=== PATIENT | male | born 1930 | race Caucasian/White ===

== ENCOUNTER 2016-12-07 16:22 | Inpatient (IN) | payer BC, OTHER ==
[~2016-12-07] VITALS: Ht 170.2 cm; Wt 82.8 kg
[~2016-12-07 16:22] MED LIST: ASPI-435 PO; CHOL100010 PO; FRS/40 PO; GABA-112 PO; LISI-729 PO; METO25TA3 PO; MULT-506 PO; PRAV20TA PO; TRAM-10 PO
--- NOTE | 2016-12-07 16:51 | EMERGENCY ROOM VISIT NOTE ---
History First contact with patient: 16:29 Chief Complaint: TACHYCARDIA Stated Complaint: FAST HEART RATE- PHYSICIAN REFERRED Nursing Triage Summary: pt sent by , was there today for routine appt and was found to have a rapid heart rate. denies any chest pain or sob. unsure of when it began denies cardiac hx History of Present Illness The patient is a 86 year old male who presents to the Emergency Room via private vehicle with complaints of referred from skip pitman's office for tachycardia. The patient states that he was at Dr. Mcghee's office, for a routine 6 month checkup. As the patient does have a history of 2 stents in his heart. It was found that during his checkup his heart rate was 135 bpm, therefore he was sent here for further evaluation and management. Patient this time denies any shortness of breath, chest pain, fevers, chills, lightheadedness , dizziness, history of blood clots. He does note bilateral pedal edema which he takes Lasix for. Review of Systems A complete 10-point Review of Systems was discussed with the patient, with pertinent positives and negatives listed in the History of Present Illness. All remaining Review of Systems questions can be considered negative unless otherwise specified. Past Medical/Surgical History Medical Problems: (1) Atrial tachycardia determined by electrocardiography Family History High blood pressure Social History Smoking Status: Never Smoker Social History: Patient lives with Current/Historical Medications Scheduled Aspirin (Aspirin 81), 81 MG PO QAM Bumetanide (Bumetanide), 2 MG PO Q2D Bumetanide (Bumex), 3 MG PO Q2D Cholecalciferol (Vitamin D3), 1 TAB PO DAILY Gabapentin (Neurontin), 200 MG PO BID Lisinopril (Zestril), 5 MG PO QPM Metoprolol Succ (Toprol Xl) (Toprol-Xl), 25 MG PO QAM Multivitamin (Multivitamin), 1 TAB PO QAM Potassium Chloride (Potassium Chloride ER), 20 MEQ PO DAILY Pravastatin (Pravachol ), 20 MG PO HS Scheduled PRN Tramadol (Ultram), 50 MG PO Q4H PRN for Pain Allergies Coded Allergies: Penicillins (Verified Allergy, Mild, RASH, 04/24/15) Physical Exam Vital Signs Date Time Temp Pulse Resp B/P (MAP) Pulse Ox O2 Delivery O2 Flow Rate FiO2 12/07/16 18:26 131 18 95/72 95 Nasal Cannula 4.0 12/07/16 18:13 114 20 91/67 95 Nasal Cannula 4.0 12/07/16 17:41 88 Room Air 12/07/16 17:41 123 22 106/76 94 Nasal Cannula 2.0 12/07/16 17:38 133 22 107/83 91 Room Air 12/07/16 17:07 95 Room Air 12/07/16 17:07 134 16 113/83 94 Room Air 12/07/16 16:59 134 12/07/16 16:25 36.3 107 16 118/81 93 Room Air Physical Exam VITAL SIGNS - Vital signs and nursing notes were reviewed. Patient is afebrile , normotensive, non-tachycardic and is saturating on room air 93% GENERAL -86-year-old male appearing his stated age who is in no acute distress. Communicates well with provider and answers questions appropriately. SKIN - Without rashes. No petechial rashes. HEAD - NC/AT. LUNGS - Chest wall symmetric without accessory muscle use, intercostals retractions, or central cyanosis. Normal vesicular breath sounds CTA B/L. No wheezes, rales, or rhonchi appreciated. CARDIAC - RRR with S1/S2. No murmur, rubs, or gallops appreciated. EXTREMITIES - No clubbing or peripheral cyanosis. Trace pedal edema noted bilaterally. No pretibial edema present. +5/5 strength noted in UE/LE bilaterally. NEUROLOGIC - Cranial nerves II through XII grossly intact. Sensory intact to light touch throughout. PSYCH -Pt is very pleasant and interacts well with examiner. Medical Decision & Procedures ER Provider Diagnostic Interpretation: CHEST ONE VIEW PORTABLE CLINICAL HISTORY: Tachycardia COMPARISON STUDY: 07/09/2014 FINDINGS: The heart is enlarged. There is mild central pulmonary vascular congestion. There is a trace right pleural effusion. There are linear bibasilar opacities likely atelectatic.[ IMPRESSION: Cardiomegaly and mild pulmonary vascular congestion. Trace right pleural effusion. Bibasilar opacities likely atelectatic Electronically signed by: Ramy Sevilla M.D. 12/07/2016 5:35 PM Dictated Date/Time: 12/07/2016 5:34 PM Laboratory Results 12/07/16 16:52 Red Blood Count 4.30, Mean Corpuscular Volume 96.0, Mean Corpuscular Hemoglobin 33.0, Mean Corpuscular Hemoglobin Concent 34.4, Mean Platelet Volume 10.1, Neutrophils (%) (Auto) 62.0, Lymphocytes (%) (Auto) 25.6, Monocytes (%) (Auto) 10.3, Eosinophils (%) (Auto) 1.5, Basophils (%) (Auto) 0.5, Neutrophils # (Auto ) 4.80, Lymphocytes # (Auto) 1.99, Monocytes # (Auto) 0.80, Eosinophils # (Auto ) 0.12, Basophils # (Auto) 0.04 12/07/16 16:52 Test 12/07/16 16:32 12/07/16 16:52 12/07/16 17:01 12/07/16 17:07 Urine Color YELLOW Urine Appearance CLEAR (CLEAR) Urine pH 5.0 (4.5-7.5) Urine Specific [place] 1.019 (1.000-1.030) Urine Protein NEG (NEG) Urine Glucose (UA) NEG (NEG) Urine Ketones NEG (NEG) Urine Occult Blood NEG (NEG) Urine Nitrite NEG (NEG) Urine Bilirubin NEG (NEG) Urine Urobilinogen NEG (NEG) Urine Leukocyte Esterase NEG (NEG) White Blood Count 7.76 K/uL (4.8-10.8) Red Blood Count 4.30 M/uL (4.7-6.1) Hemoglobin 14.2 g/dL (14.0-18.0) Hematocrit 41.3 % (42-52) Mean Corpuscular Volume 96.0 fL (80-100) Mean Corpuscular Hemoglobin 33.0 pg (25-34) Mean Corpuscular Hemoglobin Concent 34.4 g/dl (32-36) Platelet Count 158 K/uL (130-400) Mean Platelet Volume 10.1 fL (7.4-10.4) Neutrophils (%) (Auto) 62.0 % Lymphocytes (%) (Auto) 25.6 % Monocytes (%) (Auto) 10.3 % Eosinophils (%) (Auto) 1.5 % Basophils (%) (Auto) 0.5 % Neutrophils # (Auto) 4.80 K/uL (1.4-6.5) Lymphocytes # (Auto) 1.99 K/uL (1.2-3.4) Monocytes # (Auto) 0.80 K/uL (0.11-0.59) Eosinophils # (Auto) 0.12 K/uL (0-0.5) Basophils # (Auto) 0.04 K/uL (0-0.2) RDW Standard Deviation 47.0 fL (36.4-46.3) RDW Coefficient of Variation 13.4 % (11.5-14.5) Immature Granulocyte % (Auto) 0.1 % Immature Granulocyte # (Auto) 0.01 K/uL (0.00-0.02) Anion Gap 9.0 mmol/L (3-11) Est Creatinine Clear Calc Drug Dose 56.7 ml/min Estimated GFR () 79.7 Estimated GFR (Non- 68.8 BUN/Creatinine Ratio 23.2 (10-20) Calcium Level 9.0 mg/dl (8.5-10.1) Magnesium Level 2.2 mg/dl (1.8-2.4) Total Bilirubin 0.6 mg/dl (0.2-1) Aspartate Amino Transf (AST/SGOT) 60 U/L (15-37) Alanine Aminotransferase (ALT/SGPT) 51 U/L (12-78) Alkaline Phosphatase 96 U/L (45-117) Total Protein 8.3 gm/dl (6.4-8.2) Albumin 3.6 gm/dl (3.4-5.0) Globulin 4.7 gm/dl (2.5-4.0) Albumin/Globulin Ratio 0.8 (0.9-2) Thyroid Stimulating Hormone (TSH) 4.270 uIu/ml (0.300-4.500) Bedside Troponin I 0.030 ng/ml (0-0.045) TF-Kvq-L-Type Natriuretic Peptide 1625 pg/ml (0-1800) Bedside Lactic Acid Venous 1.66 mmol/L (0.90-1.70) Test 12/07/16 17:28 Prothrombin Time 12.5 SECONDS (9.0-12.0) Prothromb Time International Ratio 1.2 (0.9-1.1) Activated Partial Thromboplast Time 28.5 SECONDS (21.0-31.0) Partial Thromboplastin Ratio 1.1 Medications Administered Medications (Trade) Dose Ordered Sig/Anni Route Start Time Stop Time Status Last Admin Dose Admin Diltiazem HCl (Cardizem Bolus / Drip) 1 ea NOW STAT IV 12/07/16 17:15 12/07/16 17:18 DC 12/07/16 17:37 1 EA Sodium Chloride 500 ml @ 999 mls/hr Q31M STAT IV 12/07/16 17:15 12/07/16 17:45 DC 12/07/16 17:32 999 MLS/HR Diltiazem HCl (Cardizem Inj) 10 mg TODAY@1730 IV 12/07/16 17:30 12/07/16 17:31 DC 12/07/16 17:33 10 MG Diltiazem HCl 125 mg/Dextrose 125 ml @ 0 mls/hr Q0M PRN IV 12/07/16 17:30 12/07/16 23:59 DC 12/07/16 17:37 5 MLS/HR Medical Decision Patient was seen and evaluated as above. After obtaining a thorough history and physical examination IV access was initiated and the above workup was performed. Bedside EKG was obtained and reveals what appears to be a wide tachycardia at a rate of 135 bpm. No ischemic change noted. I suspect the patient is likely experiencing atrial tachycardia 2: 1. This was also suspected by his skip pitman referred him here. I do not suspect V. tach at this time. Patient denies any other concerns. A Cardizem drip was initiated 10 mg bolus, followed by 5 mg drip. He is reevaluated and his rate had dropped to the low 120s. Chest x-ray does reveal cardiomegaly, pulmonary vascular congestion, and a small pleural effusion. His lung sounds are normal. CBC reveals no concern of leukocytosis. Hemoglobin 14.2. INR 1.2. BUN high 23, creatinine is 1. AST high at 60. Total protein high at 8.3. Globulin high at 4.7. Albumin/globulin ratio low at 0.08. Point care troponin and BNP unremarkable. Point care lactic unremarkable. I do not suspect sepsis. At this time I believe that admission is warranted. Case was discussed with my attending and he was also involved throughout the patient's stay. Case was discussed with Dr. Almazan. I also did call the skip pitman who took care of the patient at 6:05 PM (Dr. Hanks) The right bundle yanelis block was noted below. He was okay with the diltiazem drip. He recommends we have cardiology consult, and Dr. Parkinson can see him tomorrow. He also recommended slowing the rate down to 90s and also notes the echocardiogram was normal in 2015. The patient is stable for admission. Please refer to further documentation regarding the patient's stay. In evaluation treatment this patient following differential diagnoses entertained: Atrial tachycardia, V. tach, [place], PE, among others. Impression Primary Impression: Atrial tachycardia determined by electrocardiography Departure Information Dispostion Admitted as an inpatient Condition FAIR Referrals Ishaan Perry M.D. (PCP) Patient Instructions [facility]
[2016-12-07 17:08] LABS: BASO % 0.5 %; BASO ABS # 0.04 K/uL (0-0.2); COMPLETE YES; EOS % 1.5 %; HEMATOCRIT 41.3 % (42-52); IG% 0.1 %; LYMPH % 25.6 %; LYMPH ABS # 1.99 K/uL (1.2-3.4); MEAN CORPUSCULAR HGB CONC 34.4 g/dl (32-36); MEAN PLATELET VOLUME 10.1 fL (7.4-10.4); MONO % 10.3 %; PLATELET COUNT 158 K/uL (130-400); WHITE BLOOD COUNT 7.76 K/uL (4.8-10.8)
[2016-12-07] MEDS ORDERED: SODIUM CHLORIDE 0.9% 500ML 500 ML IV STA (17:15)
[2016-12-07] MEDS ORDERED: DILTIAZEM BOLUS / DRIP IV STA ×2 (17:15→19:16)
[2016-12-07] MEDS ORDERED: POTA-65 PO (17:15)
[2016-12-07] MEDS ORDERED: BUME1TAB PO (17:15)
[2016-12-07] MEDS ORDERED: BMX1 PO (17:15)
[2016-12-07] MEDS ORDERED: CHOL1000 PO (17:15)
[2016-12-07 17:20] LABS: POINT OF CARE TROPONIN I 0.03 ng/ml (0-0.045)
[2016-12-07 17:25] LABS: BUN/CREATININE RATIO 23.2 (10-20); MAGNESIUM 2.2 mg/dl (1.8-2.4); POTASSIUM 4.1 mmol/L (3.5-5.1)
[2016-12-07] MEDS ORDERED: DILTIAZEM HCL INJ 125 MG in DEXTROSE 5% 100ML IV PRN (17:30)
[2016-12-07] MEDS ORDERED: DILTIAZEM HCL 5 MG/ML 5 ML VIAL IV SCH (17:30)
[2016-12-07 17:35] LABS: URINE APPEARANCE CLEAR (CLEAR); URINE BILIRUBIN NEG (NEG); URINE COLOR YELLOW; URINE NITRITE NEG (NEG); URINE SPECIFIC GRAVITY 1.019 (1.000-1.030); UROBILINOGEN NEG (NEG); ZZUR CULT IF INDIC CLEAN CATCH NO
[2016-12-07 17:36] LABS: ALB/GLOB RATIO 0.8 (0.9-2); THYROID STIMULATING HORMONE 4.27 uIu/ml (0.300-4.500)
[2016-12-07 17:36] LABS: MANUAL MICROSCOPIC REQUIRED? NO; REVIEW REQ? NO
--- NOTE | 2016-12-07 17:36 | DIAGNOSTIC IMAGING REPORT ---
CHEST ONE VIEW PORTABLE CLINICAL HISTORY: Tachycardia COMPARISON STUDY: 07/09/2014 FINDINGS: The heart is enlarged. There is mild central pulmonary vascular congestion. There is a trace right pleural effusion. There are linear bibasilar opacities likely atelectatic.[ IMPRESSION: Cardiomegaly and mild pulmonary vascular congestion. Trace right pleural effusion. Bibasilar opacities likely atelectatic Electronically signed by: Ramy Sevilla M.D. 12/07/2016 5:35 PM Dictated Date/Time: 12/07/2016 5:34 PM
[2016-12-07 17:42] LABS: INR 1.2 (0.9-1.1); PARTIAL THROMBOPLASTIN RATIO 1.1; PROTHROMBIN TIME (PATIENT) 12.5 SECONDS (9.0-12.0)
[2016-12-07] MEDS ORDERED: POLYETHYLENE (MIRALAX) 17 GM PACK PO PRN (18:30)
[2016-12-07] MEDS ORDERED: MAGNESIUM HYDROXIDE SUSP 30 ML UDC PO PRN (18:30)
[2016-12-07] MEDS ORDERED: ONDANSETRON INJ 2 MG/ML 2 ML VIAL IV PRN (18:30)
[2016-12-07] MEDS ORDERED: ALUMINUM/MAGNESIUM/SIMETH (MAALOX MAX) 30 ML UDC PO PRN (18:30)
[2016-12-07] MEDS ORDERED: ACETAMINOPHEN 325 MG TAB PO PRN (18:30)
--- NOTE | 2016-12-07 19:18 | History and Physical ---
History & Physical Date & Time of Service: Dec 07, 2016 at 18:54 Chief Complaint: Fast Heart Rate- Physician Referred Primary Care Physician: Ishaan Perry M.D. History of Present Illness Source: patient Patient is an 86 year old male that presents with tachycardia after being sent from his cardiologists office. The patient was being seen for a 6 month follow up by his Outbound Sales Representative Dr. Hanks and was found to have a heart rate in the 130s and was told to come to the emergency department. The patient has dementia and states all he remembers was being at the doctors office and being sent to the hospital. He denies any chest pain, palpitations, lightheadedness, shortness of breath, abdominal pain, fever, nausea, or vomiting. He has no acute complaints and says he feels fine. Social History Smoking Status: Never Smoker Multi-Drug Resistant Organisms History of MDRO: No Allergies Coded Allergies: Penicillins (Verified Allergy, Mild, RASH, 04/24/15) Home Medications Scheduled Aspirin (Aspirin 81), 81 MG PO QAM Bumetanide (Bumetanide), 2 MG PO Q2D Bumetanide (Bumex), 3 MG PO Q2D Cholecalciferol (Vitamin D3), 1 TAB PO DAILY Gabapentin (Neurontin), 200 MG PO BID Lisinopril (Zestril), 5 MG PO QPM Metoprolol Succ (Toprol Xl) (Toprol-Xl), 25 MG PO QAM Multivitamin (Multivitamin), 1 TAB PO QAM Potassium Chloride (Potassium Chloride ER), 20 MEQ PO DAILY Pravastatin (Pravachol ), 20 MG PO HS Scheduled PRN Tramadol (Ultram), 50 MG PO Q4H PRN for Pain Review of Systems See HPI for pertinent positives and negatives. A total of ten systems were reviewed and were otherwise negative. Constitutional: No fever, No chills Respiratory: No cough, No shortness of breath Cardiovascular: No chest pain, No palpitations Abdomen: No pain, No nausea, No vomiting, No diarrhea Physical Exam Vital Signs Date Time Temp Pulse Resp B/P (MAP) Pulse Ox O2 Delivery O2 Flow Rate FiO2 12/07/16 18:45 130 20 108/85 95 Nasal Cannula 4.0 12/07/16 18:26 131 18 95/72 95 Nasal Cannula 4.0 12/07/16 18:13 114 20 91/67 95 Nasal Cannula 4.0 12/07/16 17:41 88 Room Air 12/07/16 17:41 123 22 106/76 94 Nasal Cannula 2.0 12/07/16 17:38 133 22 107/83 91 Room Air 12/07/16 17:07 95 Room Air 12/07/16 17:07 134 16 113/83 94 Room Air 12/07/16 16:59 134 12/07/16 16:25 36.3 107 16 118/81 93 Room Air General Appearance: WD/WN, no apparent distress Head: normocephalic, atraumatic Neck: supple, no carotid bruits Respiratory/Chest: chest non-tender, lungs clear, normal breath sounds Cardiovascular: no JVD, no murmur, + irregularly irregular Abdomen/GI: normal bowel sounds, non tender, soft Back: normal inspection Extremities/Musculoskelatal: no calf tenderness, + pedal edema Neurologic/Psych: alert, normal mood/affect, oriented x 3 Diagnostics Laboratory Results Results Past 24 Hours Test 12/07/16 16:32 12/07/16 16:52 12/07/16 17:01 12/07/16 17:07 Range/Units Urine Color YELLOW Urine Appearance CLEAR CLEAR Urine pH 5.0 4.5-7.5 Urine Specific [place] 1.019 1.000-1.030 Urine Protein NEG NEG Urine Glucose (UA) NEG NEG Urine Ketones NEG NEG Urine Occult Blood NEG NEG Urine Nitrite NEG NEG Urine Bilirubin NEG NEG Urine Urobilinogen NEG NEG Urine Leukocyte Esterase NEG NEG White Blood Count 7.76 4.8-10.8 K/uL Red Blood Count 4.30 4.7-6.1 M/uL Hemoglobin 14.2 14.0-18.0 g/dL Hematocrit 41.3 42-52 % Mean Corpuscular Volume 96.0 80-100 fL Mean Corpuscular Hemoglobin 33.0 25-34 pg Mean Corpuscular Hemoglobin Concent 34.4 32-36 g/dl Platelet Count 158 130-400 K/uL Mean Platelet Volume 10.1 7.4-10.4 fL Neutrophils (%) (Auto) 62.0 % Lymphocytes (%) (Auto) 25.6 % Monocytes (%) (Auto) 10.3 % Eosinophils (%) (Auto) 1.5 % Basophils (%) (Auto) 0.5 % Neutrophils # (Auto) 4.80 1.4-6.5 K/uL Lymphocytes # (Auto) 1.99 1.2-3.4 K/uL Monocytes # (Auto) 0.80 0.11-0.59 K/uL Eosinophils # (Auto) 0.12 0-0.5 K/uL Basophils # (Auto) 0.04 0-0.2 K/uL RDW Standard Deviation 47.0 36.4-46.3 fL RDW Coefficient of Variation 13.4 11.5-14.5 % Immature Granulocyte % (Auto) 0.1 % Immature Granulocyte # (Auto) 0.01 0.00-0.02 K/uL Sodium Level 139 136-145 mmol/L Potassium Level 4.1 3.5-5.1 mmol/L Chloride Level 103 98-107 mmol/L Carbon Dioxide Level 27 21-32 mmol/L Anion Gap 9.0 3-11 mmol/L Blood Urea Nitrogen 23 7-18 mg/dl Creatinine 1.00 0.60-1.40 mg/dl Est Creatinine Clear Calc Drug Dose 56.7 ml/min Estimated GFR () 79.7 Estimated GFR (Non- 68.8 BUN/Creatinine Ratio 23.2 10-20 Random Glucose 113 70-99 mg/dl Calcium Level 9.0 8.5-10.1 mg/dl Magnesium Level 2.2 1.8-2.4 mg/dl Total Bilirubin 0.6 0.2-1 mg/dl Aspartate Amino Transf (AST/SGOT) 60 15-37 U/L Alanine Aminotransferase (ALT/SGPT) 51 12-78 U/L Alkaline Phosphatase 96 45-117 U/L Total Protein 8.3 6.4-8.2 gm/dl Albumin 3.6 3.4-5.0 gm/dl Globulin 4.7 2.5-4.0 gm/dl Albumin/Globulin Ratio 0.8 0.9-2 Thyroid Stimulating Hormone (TSH) 4.270 0.300-4.500 uIu/ml Bedside Troponin I 0.030 0-0.045 ng/ml GL-Syt-T-Type Natriuretic Peptide 1625 0-1800 pg/ml Bedside Lactic Acid Venous 1.66 0.90-1.70 mmol/L Test 12/07/16 17:28 Range/Units Prothrombin Time 12.5 9.0-12.0 SECONDS Prothromb Time International Ratio 1.2 0.9-1.1 Activated Partial Thromboplast Time 28.5 21.0-31.0 SECONDS Partial Thromboplastin Ratio 1.1 Impression Assessment and Plan Patient is an 86 year old male that presented to the ED with tachycardia 1) Atrial Tachycardia - EKG as read by Dr. Hanks appears to be Atrial Tachycardia with 2:1 conduction - Diltiazem bolus of 10ml - Diltiazem drip at 5ml/hr - Discussed patient with Dr. Hanks who provided above recommendations to get rate under control - Consult to Dr. Garcia and Cardiology to see the patient tomorrow - No anticoagulation due to history of Cirrhosis and Varices - Hold home Toprol Xl until seen by cardiology tomorrow morning 2) Hypertension - Hold home Lisinopril and Toprol until heart rate stabilizes and hypotension resolves - Hold home Lasix 3) Hyperlipidemia - Hold home Pravastatin 4) Home Medications - Hold Gabapentin and remaining home medications overnight 5) DVT - SCD Resident Physician Supervision Note: I was present with Dr. Dumont during the history and exam. I discussed the case with the resident and agree with the findings and plan as documented in the note. 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 Y/N: Yes Risk Level: Moderate Given or contraindicated: SCD's
[2016-12-07 19:45] VITALS: BP 121/83; PULSE 133; TEMP 36.8; O2SAT 91
[2016-12-07 20:00] VITALS: BP 121/83; PULSE 133; TEMP 36.8; O2SAT 91; Ht 170.2 cm; Wt 82.8 kg
[2016-12-07] MEDS: DILTIAZEM HCL INJ 125 MG in DEXTROSE 5% 100ML IV PRN (20:05)
[2016-12-07 20:15] VITALS: BP 132/88; PULSE 133
[2016-12-07 20:45] VITALS: BP 116/44; PULSE 99
--- NOTE | 2016-12-07 23:14 | EMERGENCY ROOM VISIT NOTE ---
ED Visit Note First contact with patient: 16:29 Patient was seen by our PA/TIRE DUSTER. I was involved in the patient's care and did evaluate the patient myself. I was involved in the care throughout the ER stay. The patient appears to be in a new onset rapid atrial flutter. Laboratory workup is unrevealing. The patient is doing well but is persistently tachycardic. He was given an IV diltiazem bolus and placed on an IV diltiazem drip, admission/observation is warranted.
[2016-12-07 23:33] VITALS: BP 138/68; PULSE 98; TEMP 36.7; O2SAT 94
[2016-12-08] VITALS (14 sets, daily range): BP systolic 85–130; BP diastolic 49–80; PULSE 55–130; TEMP 36.5–36.7; O2SAT 90–94
[2016-12-08] MEDS: DILTIAZEM HCL INJ 125 MG in DEXTROSE 5% 100ML IV PRN (05:35)
--- NOTE | 2016-12-08 08:51 | Clinical Documentation Query ---
OTIS Cook : CLINICAL DOCUMENTATION QUERY Patient is an 86 year old male admitted for evaluation and treatment of an "atrial tachycardia". Anticoagulation was deferred in the setting of an atrial tachycardia as patient was noted by admitting physician to have a history of varices. Noted to have liver cirrhosis. As appropriate, consider clarification as suggested below as this directly impacts DRG assignment. Thank you. In your clinical opinion is this patient being managed for/have a history of: ( ) Esophageal varices ( ) Other explanation of clinical findings (Please Explain) ( ) Unable to determine (Please Define) ( ) Need to Discuss ( ) Not Agree The medical record reflects the following clinical findings, treatment, and risk factors. Clinical Indicators: As above Treatment: Avoidance of anticoagulation in the setting of atrial tachycardia Risk Factors: Liver cirrhosis Please clarify and document your clinical opinion in the progress notes and discharge summary. Terms such as "probable", "suspected", "likely", "questionable", "possible", or "still to be ruled out" are acceptable. IF IN AGREEMENT, YOU MUST DOCUMENT ABOVE DIAGNOSTIC STATEMENT IN DAILY PROGRESS NOTES AND DISCHARGE SUMMARY. This document is not part of the patient's record. Thank You, Giles Amato, RN [phone]
[2016-12-08] MEDS ORDERED: PROPOFOL IV EMULSION 10 MG/ML 20 ML VIAL IV ONE (09:46)
[2016-12-08] MEDS ORDERED: ENOXAPARIN 80 MG/0.8 ML SYR SQ ONE (10:00)
[2016-12-08] MEDS ORDERED: LIDOCAINE HCL 2% VISC SOLN 20 ML UDC ONE (10:07)
[2016-12-08] MEDS ORDERED: NURSING VERBAL MED ORDER ONE (10:15)
[2016-12-08] MEDS ORDERED: PHENYLEPHRINE 100MCG/ML 5ML SYR ONE (10:36)
[2016-12-08] MEDS ORDERED: EpHEDrine SULFATE 50MG/5ML SYR ONE (10:36)
[2016-12-08] MEDS ORDERED: XRL15 PO (11:34)
[2016-12-08] MEDS ORDERED: XRL10 PO (11:34)
--- NOTE | 2016-12-08 11:39 | Anesthesiology Progress Note ---
Anesthesia Post Op Note Date & Time Dec 08, 2016 at 11:39 Vital Signs Pain Intensity: 0 Vital Signs Past 12 Hours Date Time Temp Pulse Resp B/P (MAP) Pulse Ox O2 Delivery O2 Flow Rate FiO2 12/08/16 11:19 36.7 75 18 99/69 (79) 92 Nasal Cannula 2.0 12/08/16 10:48 79 18 91/48 (62) 92 Nasal Cannula 4 12/08/16 10:38 77 18 99/58 (72) 93 Mask 6 12/08/16 10:28 82 16 91/52 (65) 93 Mask 6 12/08/16 10:25 76 18 94/49 92 Mask 6 12/08/16 10:20 118 18 85/54 92 Nasal Cannula 6 12/08/16 10:15 118 18 94/55 92 Nasal Cannula 6 12/08/16 10:10 129 18 113/80 94 Nasal Cannula 4 12/08/16 10:05 129 18 122/72 94 Nasal Cannula 4 12/08/16 10:00 130 18 118/71 94 Nasal Cannula 4 12/08/16 09:34 36.6 94 22 107/62 91 Room Air 12/08/16 08:10 91 Room Air 12/08/16 07:30 36.6 55 22 107/62 (77) 90 Nasal Cannula 2.0 12/08/16 04:05 94 Nasal Cannula 2.0 12/08/16 03:16 36.5 105 130/70 (90) 92 Nasal Cannula 2.0 12/08/16 00:05 Nasal Cannula 2.0 Notes Mental Status: alert / awake / arousable, participated in evaluation Pt Amnestic to Procedure: Yes Nausea / Vomiting: adequately controlled Pain: adequately controlled Airway Patency, RR, SpO2: stable & adequate BP & HR: stable & adequate Hydration State: stable & adequate Anesthetic Complications: no major complications apparent
--- NOTE | 2016-12-08 13:26 | Medical Student: [facility] ---
Med Student Progress Note Date of Service Dec 08, 2016. Subjective This is an 86 year old male with dementia who has been admitted for irregular atrial tachycardia, likely atrial flutter. He was cardioverted this am and has been stable in NSR since. Patient is a poor historian, but states he feels well overall and would like to eat. He has no complaints. Review of Systems Constitutional: No fever, No chills ENT: No sore throat Respiratory: No cough, No sputum, No wheezing, No shortness of breath Cardiac: No chest pain, No edema Abdomen: No pain, No nausea, No vomiting, No diarrhea, No constipation Male : No dysuria Heme: No abnormal bleeding/bruising Objective Vital Signs Date Time Temp Pulse Resp B/P (MAP) Pulse Ox O2 Delivery O2 Flow Rate FiO2 12/08/16 12:05 93 Nasal Cannula 1.0 12/08/16 11:19 36.7 75 18 99/69 (79) 92 Nasal Cannula 2.0 12/08/16 10:48 79 18 91/48 (62) 92 Nasal Cannula 4 12/08/16 10:38 77 18 99/58 (72) 93 Mask 6 12/08/16 10:28 82 16 91/52 (65) 93 Mask 6 12/08/16 10:25 76 18 94/49 92 Mask 6 12/08/16 10:20 118 18 85/54 92 Nasal Cannula 6 12/08/16 10:15 118 18 94/55 92 Nasal Cannula 6 12/08/16 10:10 129 18 113/80 94 Nasal Cannula 4 12/08/16 10:05 129 18 122/72 94 Nasal Cannula 4 12/08/16 10:00 130 18 118/71 94 Nasal Cannula 4 12/08/16 09:34 36.6 94 22 107/62 91 Room Air 12/08/16 08:10 91 Room Air 12/08/16 07:30 36.6 55 22 107/62 (77) 90 Nasal Cannula 2.0 12/08/16 04:05 94 Nasal Cannula 2.0 12/08/16 03:16 36.5 105 130/70 (90) 92 Nasal Cannula 2.0 12/08/16 00:05 Nasal Cannula 2.0 12/07/16 23:33 36.7 98 26 138/68 (91) 94 Nasal Cannula 2.0 12/07/16 20:45 99 16 116/44 (68) 12/07/16 20:15 133 18 132/88 (103) 12/07/16 20:00 36.8 133 20 121/83 91 Room Air 12/07/16 19:45 36.8 133 20 121/83 (96) 91 Room Air 12/07/16 19:03 131 20 131/81 97 Nasal Cannula 4.0 12/07/16 18:45 130 20 108/85 95 Nasal Cannula 4.0 12/07/16 18:26 131 18 95/72 95 Nasal Cannula 4.0 12/07/16 18:13 114 20 91/67 95 Nasal Cannula 4.0 12/07/16 17:41 88 Room Air 12/07/16 17:41 123 22 106/76 94 Nasal Cannula 2.0 12/07/16 17:38 133 22 107/83 91 Room Air 12/07/16 17:07 95 Room Air 12/07/16 17:07 134 16 113/83 94 Room Air 12/07/16 16:59 134 12/07/16 16:25 36.3 107 16 118/81 93 Room Air Physical Exam General Appearance: WD/WN, no apparent distress Neck: supple, no adenopathy, thyroid normal, no JVD Respiratory/Chest: chest non-tender, lungs clear, normal breath sounds, no respiratory distress, no accessory muscle use Cardiovascular: regular rate, rhythm, no edema, no gallop, no JVD Abdomen: normal bowel sounds, non tender, soft, no organomegaly Neurologic/Psychiatric: alert, normal mood/affect Skin: normal color, warm/dry, no rash Lymphatic: no adenopathy Laboratory Results Last 24 Hours Test 12/07/16 16:32 12/07/16 16:52 12/07/16 17:01 12/07/16 17:07 Urine Color YELLOW Urine Appearance CLEAR Urine pH 5.0 Urine Specific [place] 1.019 Urine Protein NEG Urine Glucose (UA) NEG Urine Ketones NEG Urine Occult Blood NEG Urine Nitrite NEG Urine Bilirubin NEG Urine Urobilinogen NEG Urine Leukocyte Esterase NEG White Blood Count 7.76 K/uL Red Blood Count 4.30 M/uL Hemoglobin 14.2 g/dL Hematocrit 41.3 % Mean Corpuscular Volume 96.0 fL Mean Corpuscular Hemoglobin 33.0 pg Mean Corpuscular Hemoglobin Concent 34.4 g/dl Platelet Count 158 K/uL Mean Platelet Volume 10.1 fL Neutrophils (%) (Auto) 62.0 % Lymphocytes (%) (Auto) 25.6 % Monocytes (%) (Auto) 10.3 % Eosinophils (%) (Auto) 1.5 % Basophils (%) (Auto) 0.5 % Neutrophils # (Auto) 4.80 K/uL Lymphocytes # (Auto) 1.99 K/uL Monocytes # (Auto) 0.80 K/uL Eosinophils # (Auto) 0.12 K/uL Basophils # (Auto) 0.04 K/uL RDW Standard Deviation 47.0 fL RDW Coefficient of Variation 13.4 % Immature Granulocyte % (Auto) 0.1 % Immature Granulocyte # (Auto) 0.01 K/uL Sodium Level 139 mmol/L Potassium Level 4.1 mmol/L Chloride Level 103 mmol/L Carbon Dioxide Level 27 mmol/L Anion Gap 9.0 mmol/L Blood Urea Nitrogen 23 mg/dl Creatinine 1.00 mg/dl Est Creatinine Clear Calc Drug Dose 56.7 ml/min Estimated GFR () 79.7 Estimated GFR (Non- 68.8 BUN/Creatinine Ratio 23.2 Random Glucose 113 mg/dl Calcium Level 9.0 mg/dl Magnesium Level 2.2 mg/dl Total Bilirubin 0.6 mg/dl Aspartate Amino Transf (AST/SGOT) 60 U/L Alanine Aminotransferase (ALT/SGPT) 51 U/L Alkaline Phosphatase 96 U/L Total Protein 8.3 gm/dl Albumin 3.6 gm/dl Globulin 4.7 gm/dl Albumin/Globulin Ratio 0.8 Thyroid Stimulating Hormone (TSH) 4.270 uIu/ml Bedside Troponin I 0.030 ng/ml [id number] Natriuretic Peptide 1625 pg/ml Bedside Lactic Acid Venous 1.66 mmol/L Test 12/07/16 17:28 Prothrombin Time 12.5 SECONDS Prothromb Time International Ratio 1.2 Activated Partial Thromboplast Time 28.5 SECONDS Partial Thromboplastin Ratio 1.1 Medications Medications Administered Medications (Trade) Dose Ordered Sig/Anni Route Start Time Stop Time Status Last Admin Dose Admin Diltiazem HCl (Cardizem Bolus / Drip) 1 ea NOW STAT IV 12/07/16 17:15 12/08/16 09:35 DC 12/07/16 17:37 1 EA Sodium Chloride 500 ml @ 999 mls/hr Q31M STAT IV 12/07/16 17:15 12/07/16 17:45 DC 12/07/16 17:32 999 MLS/HR Diltiazem HCl (Cardizem Inj) 10 mg TODAY@1730 IV 12/07/16 17:30 12/07/16 17:31 DC 12/07/16 17:33 10 MG Diltiazem HCl 125 mg/Dextrose 125 ml @ 0 mls/hr Q0M PRN IV 12/07/16 17:30 12/07/16 23:59 DC 12/07/16 17:37 5 MLS/HR Ondansetron HCl (Zofran Inj) 4 mg Q6H PRN IV 12/07/16 18:30 01/06/17 18:29 12/08/16 06:05 4 MG Diltiazem HCl 125 mg/Dextrose 125 ml @ 0 mls/hr Q0M PRN IV 12/08/16 00:00 12/08/16 10:10 DC 12/08/16 05:35 10 MLS/HR Lidocaine HCl (Viscous Lidocaine 2% Soln) 20 ml STK-MED ONCE .ROUTE 12/08/16 10:07 12/08/16 10:08 DC 12/08/16 10:07 20 ML Assessment and Plan Assessment and Plan: This is an 86 y/o male s/p cardioversion for atrial flutter. He is recovering well. 1. Atrial arrhythmia -s/p synchronized cardioversion and TAJ which did not demonstrate thrombus in left atrial appendage -continue observation, if stable may consider discharge home -Has received dose of lovenox with procedure, consider discharge on xarelto -May follow up outpatient with cardiology 2. HTN -hold lisinopril, toprol, lasix 3. Hypercholesterolemia -hold statin Continued [facility] stay due to: other Discharge planning: home
--- NOTE | 2016-12-08 14:15 | Discharge Instructions ---
Discharge Instructions Date of Service Dec 08, 2016. Admission Reason for Admission: Atrial Tachycardia Determined By Discharge Discharge Diagnosis / Problem: atrial tachycardial Discharge Goals Goal(s): Diagnostic testing, Therapeutic intervention Activity Recommendations Activity Limitations: resume your previous activity . Current Hospital Diet Patient's current hospital diet: Regular Diet Discharge Diet Recommended Diet: Regular Diet Pending Studies Studies pending at discharge: no Medical Emergencies . Who to Call and When: Medical Emergencies: If at any time you feel your situation is an emergency, please call 911 immediately. . Non-Emergent Contact Non-Emergency issues call your: Building Construction Foreman Call Non-Emergent contact if: temperature is above 101, your pain is unusual for you . . "Provider Documentation" section prepared by Anders Watson. . VTE Core Measure Inpt VTE Proph given/why not?: SCD's
--- NOTE | 2016-12-08 14:19 | Discharge Summary ---
Discharge Summary Date of Service Dec 08, 2016. Discharge Summary Admission Date: Dec 07, 2016 at 18:36 Discharge Date: Dec 08, 2016 Discharge Disposition: Home with services Principal Diagnosis: atrial tachycardia s/p cardioversion Consultations: Dr Garcia, cardioversion Medication Reconciliation New Medications: Rivaroxaban (Xarelto) 10 Mg Tab 2 TAB PO DAILY for 30 Days, #60 TAB 6 Refills to be started after 15 mg bid load for 21 days may substitute 20 mg tablet if able Rivaroxaban (Xarelto) 15 Mg Tab 15 MG PO BID for 21 Days, #42 DOSE xarelto 15 mg bid for 21 days then 20 mg a day Continued Medications: Aspirin (Aspirin 81) 81 Mg Tab 81 MG PO QAM Bumetanide (Bumetanide) 1 Mg Tab 2 MG PO Q2D, #72 Bumetanide (Bumex) 1 Mg Tab 3 MG PO Q2D, TAB Cholecalciferol (Vitamin D3) 1,000 Unit Tab 1 TAB PO DAILY for 90 Days, #90 TAB 3 Refills Gabapentin (Neurontin) 100 Mg Cap 200 MG PO BID, CAP Lisinopril (Zestril) 5 Mg Tab 5 MG PO QPM, TAB Metoprolol Succ (Toprol Xl) (Toprol-Xl) 25 Mg Tabcr 25 MG PO QAM, TAB Multivitamin (Multivitamin) Tab 1 TAB PO QAM, TAB Potassium Chloride (Potassium Chloride ER) 20 Meq Tab 20 MEQ PO DAILY, #30 Pravastatin (Pravachol ) 20 Mg Tab 20 MG PO HS, TAB Tramadol (Ultram) 50 Mg Tab 50 MG PO Q4H PRN for Pain, TAB Discharge Exam Review of Systems: Constitutional: + chills, No fever Cardiovascular: No chest pain, No orthopnea Abdomen: No pain, No nausea Physical Exam: General Appearance: WD/WN, no apparent distress Cardiovascular: regular rate, rhythm, + systolic murmur Hospital Course Patient is an 86 year old male that presented to the ED with atrial tachycardia Atrial Tachycardia- Diltiazem bolus/ drip initial reports of anticoagulation contraindicated due to history of Cirrhosis and Varices was erroneous, Dr Garcia feels pt should be anticoagulated and agrees with Xarelto recommentds follow up for possible ablation Hypertension- resume Lisinopril and Toprol plus diuretics Hyperlipidemia Pravastatin DVT- SCD Total Time Spent: Greater than 30 minutes This includes examination of the patient, discharge planning, medication reconciliation, and communication with other providers. Discharge Instructions Please refer to the electronic Patient Visit Report (Discharge Instructions) for additional information.
--- NOTE | 2016-12-08 14:22 | CARDIOLOGY CONSULTATION ---
DATE OF CONSULTATION: 12/08/2016 CHIEF COMPLAINT: Tachycardia. HISTORY OF PRESENT ILLNESS: Mr. Leandro Bonilla is an 86-year-old gentleman with a history significant for coronary artery disease, who presented for routine cardiology visit and was found to be tachycardic. An EKG obtained at that time suggested an atrial tachycardia with rapid ventricular response. The patient did not describe symptoms associated with the arrhythmia at that visit. On interview today, he states that he was unaware of a rapid heartbeat. He was not experiencing symptoms of worsening dyspnea or shortness of breath. He did not have symptoms of chest discomfort, lightheadedness or dizziness. He did not experience any syncopal episodes. The patient has blood pressure cuff at home but does not routinely use it. Generally he states that he is an active individual who is accustomed to walking and perform any activities around the house without limiting symptoms. He states that in the winter time he bowls and in the summer time he likes to play softball. It is unclear when he last engaged in these activities. He denies orthopnea or paroxysmal nocturnal dyspnea. He states that he does have some swelling on the upper portion of his feet bilaterally that is well controlled. He denied swelling of his abdomen. He has not had any recent abdominal complaints. He denies any difficulty with swallowing. PAST MEDICAL HISTORY: Significant for: 1. The aforementioned coronary artery disease, having undergone coronary artery bypass grafting in 1987. This was a STYLES to the LAD and a vein graft to the diagonal. 2. Percutaneous intervention involving the circumflex artery in 2005. 3. Diastolic dysfunction type 2 on echocardiogram 2014. 4. Dilated aortic root, last measured at 4.6 cm. 5. Hyperlipidemia. 6. Hypertension. 7. Aortic insufficiency, mild. 8. Dementia, characterized as moderate. 9. 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 No history of esophageal varices or abnormal liver function tests. PAST SURGICAL HISTORY: Includes the aforementioned coronary artery bypass grafting as well as cholecystectomy. OUTPATIENT MEDICATIONS: Include aspirin, bumetanide, gabapentin, lisinopril, metoprolol, potassium, pravastatin, and tramadol. MEDICAL ALLERGIES: INCLUDE PENICILLIN. SOCIAL HISTORY: The patient currently lives with his . He is a lifelong nonsmoker and denies significant alcohol use. FAMILY HISTORY: Noncontributory, given the patient's age. REVIEW OF SYSTEMS: A complete review of systems was performed and the pertinent positives are noted in the history of present illness, the remainder being negative. The patient denied any recent nausea or vomiting. He denies any hematochezia, hematemesis or dark stools recently. PHYSICAL EXAMINATION: GENERAL: He was alert. He was oriented. He answered all questions appropriately. He had some difficulty with memory at times but was pleasant. CURRENT VITAL SIGNS: Include blood pressure of 107/62 with pulse of 94. HEENT: His sclerae are anicteric. Pupils equal, reactive to light and accommodation. Extraocular movements were intact. NEUROLOGIC EXAMINATION: Revealed cranial nerves to be intact. NECK: Palpation of the submandibular region did not reveal any significant lymphadenopathy. The carotids are palpable bilaterally. I do not appreciate any bruits on auscultation. Thyroid was not enlarged. LUNGS: Auscultation of his lungs revealed clear airways without rales, wheezes or rhonchi. He had normal respiratory effort without use of accessory muscles. CARDIAC: Revealed him to be in an irregularly irregular rhythm with a systolic ejection murmur of variable intensity. He had a well-healed sternotomy scar. PMI was not markedly displaced on palpation. ABDOMEN: Soft and nontender. EXTREMITIES: Evaluation of both wrists revealed radial pulses that were equal in intensity. There was no evidence of cyanosis or clubbing. Evaluation of lower extremities revealed some peripheral edema involving the feet but this was mild. SKIN: I do not appreciate any rashes on examination today. LABORATORY STUDIES: Obtained include a white cell count of 7.7, hemoglobin of 14.2, platelet count of 158. Sodium is 139, potassium is 4.1, BUN was 23, creatinine was 1, INR was 1.2. Single view chest x-ray was obtained at the time of admission which revealed the patient to have an element of cardiomegaly and mild pulmonary vascular congestion. A 12-lead EKG was also obtained, which revealed an atrial flutter and rapid ventricular response. The patient also had a right bundle branch block. ASSESSMENT AND PLAN: 1. Atrial flutter with rapid ventricular response: I think the patient's EKG is most consistent with an organized atrial flutter, likely right atrial. He has no symptoms referable to the arrhythmia or the heart rate. The exact duration of the arrhythmia is also unknown, given the lack of symptoms associated with the atrial flutter. The patient presented yesterday simply for a routine evaluation. He has been on diltiazem infusion over the course of the evening but this did not affect a good rate control. He is also on metoprolol orally. I think we are unlikely to achieve a good rate control with an atrial flutter of this nature and cardioversion would likely be more efficacious. Given the unknown duration of his atrial flutter and the risk for stroke, a TAJ would need to be performed prior to cardioversion. A good long-term strategy would be for ablation of what is likely an isthmus dependent typical right atrial flutter. This would not only prevent recurrences but obviate the need for long-term anticoagulation in the absence of another arrhythmia. I did discuss the risks, benefits and alternatives to the patient and attempted to contact his . I think it is reasonable to anticoagulate him based on the absence of significant risk factors. We will give him Lovenox currently and plan on discharge on anticoagulation. He has no history of esophageal varices or bleeding. His synthetic liver function appears to be normal. I think the overall risk is low and we will attempt to limit the duration of anticoagulation after ablation. 2. Coronary artery disease: The patient has no symptoms currently of coronary insufficiency. Does not describe symptoms of chest discomfort. He will be continued on aggressive secondary prevention. 3. Valvular heart disease. The patient is reported to have an element of aortic insufficiency. This will be evaluated on his echocardiogram. 4. Dilated aortic root. Aortic root is approaching the size where most patients would be referred for intervention; however, given his other comorbidities, specifically his degree of dementia, this is not likely to be advised.
--- NOTE | 2016-12-08 14:24 | CARDIOVERSION ---
DATE OF OPERATION: 12/08/2016 DATE OF PROCEDURE: 12/08/2016. PROCEDURE PERFORMED: Cardioversion. STAFF LEG BREAKER: Dr. Reji Garcia. INDICATIONS: Mr. Leandro Bonilla is an 86-year-old gentleman who presented to [facility] with atrial flutter and rapid ventricular response. Based on inability to control his heart rate and difficulties with medical titration he was felt to be a good candidate for cardioversion. PROCEDURE IN DETAIL: The patient was informed of the risks, benefits and alternatives to the intended procedure. He understood such risks and wished to proceed. He was taken to the cardiac cauterization holding area where preprocedure TAJ was performed as the duration of the patient's atrial flutter was unknown. Once thrombus in the left atrial appendage was excluded the patient underwent induction of a general anesthetic by the anesthesiology service and once appropriately anesthetized he underwent cardioversion using 30 joules delivered in a biphasic fashion. This converted the patient to a sinus rhythm. The patient did have a prolonged period of unresponsiveness secondary to anesthetic after the procedure but eventually regained consciousness and was hemodynamically stable. There were no immediate complications and the patient appeared to be neurologically intact. IMPRESSION: Successful cardioversion from atrial flutter to sinus rhythm. I attest to the content of the Intraoperative Record and any orders documented therein. Any exception s are noted below.
--- NOTE | 2016-12-08 15:11 | TEE ---
*NOTICE TO RECEIVING REPUBLICAN AGENCY This information is strictly Confidential and protected under [place] law. [place] law prohibits you from making any further disclosure of this information unless further disclosure is expressly permitted by the written consent of the person to whom it pertains or is authorized by law. A general authorization for the release of medical or other information is not sufficient for this purpose. Hospital accepts no responsibility if the information is made available to any other person, INCLUDING THE PATIENT. Interpretation Summary * Name: REUBEN PALMER Study Date: 12/08/2016 10:02 AM BP: 122/79 mmHg * Patient Location: [id number].[id number]\E210\S\1 HR: 129 * : 1930 (M/d/yyyy) Gender: Male Height: 67 in * Age: 86 yrs Ethnicity: CA Weight: 182 lb * Ordering Physician: Reji Garcia * Referring Physician: Walker Hanks * Performed By: Catherine Thorne RCS * * Reason For Study: CARDIOVERSION / A-FIB * BSA: 1.9 m2 * -- Conclusions -- * There is mild concentric left ventricular hypertrophy. * The left ventricular ejection fraction is grossly normal. * The left atrium is moderately dilated. * The right atrium is moderate to severely dilated. * Severe valvular aortic stenosis. * There is mild to moderate mitral regurgitation. * There is severe mitral annular calcification. * The mitral valve leaflets appear thickened, but open well. Procedure Details * TAJ probe #3 was administered during procedure. TIME OUT: 1000 PROBE IN: 1010 PROBE OUT: 1018 CARDIOVERSION: 1019 * The study was performed in Cardiac Catheterization Lab. * Time out was conducted by the physician, nurse, and it help desk technician with positive identification of patient and procedure. * Informed consent for Transesophageal Echocardiogram was obtained prior to the procedure. * An intravenous line was placed. A topical anesthetic agent was used for oropharangeal anesthesia. A bite block was inserted. * Sedation performed by the anesthesia department. * The patient's vital signs, including blood pressure, heart rate, pulse oximetry and cardiac rhythm were monitored throughout the procedure . * A multifrequency, multiplane transesopheageal echocardiographic endoscope was inserted and manipulated in the standard fashion to achieve multiplane views. * The transesophageal probe was passed without difficulty. * The patient tolerated the procedure well without evidence of orophangeal or esophageal trauma. * A 2D transesophageal echocardiogram with spectral and color flow Doppler was performed. * A 2D transesophageal echocardiogram with Doppler and color flow Doppler was performed. Left Ventricle * There is mild concentric left ventricular hypertrophy. * The left ventricular ejection fraction is grossly normal. Atria * The left atrium is moderately dilated. * The right atrium is moderate to severely dilated. * The interatrial septum is intact with no evidence for an atrial septal defect. Mitral Valve * There is severe mitral annular calcification. * The mitral valve leaflets appear thickened, but open well. * There is mild to moderate mitral regurgitation. Tricuspid Valve * The tricuspid valve is not well visualized, but is grossly normal. Aortic Valve * Heavily calcified aortic valve * Severe valvular aortic stenosis. Pericardium * There is no pericardial effusion.
[2016-12-18] MEDS ORDERED: DILT120C50 PO (13:04)
[2016-12-18] MEDS ORDERED: CRD30 PO (13:04)
[2016-12-18] MEDS ORDERED: LNX125 PO (13:04)
== END 2016-12-08 15:50 | disposition home or self-care (01) | DRG 310 ==
LOC: C.EDB 16:23 → C.2E 18:36 → EDBEDREQ 18:42 → ENRESERV 18:58
PROVIDERS: ADMIT Student in an Organized Health Care Education/Training Program; ATTEND Internal Medicine
DX: I48.92 Unspecified atrial flutter (principal); I10 Essential (primary) hypertension; E78.5 Hyperlipidemia, unspecified; F03.90 Unspecified dementia, unspecified severity, without behavioral disturbance, psychotic disturbance, mood disturbance, and anxiety; K74.60 Unspecified cirrhosis of liver; I25.10 Atherosclerotic heart disease of native coronary artery without angina pectoris; I83.90 Asymptomatic varicose veins of unspecified lower extremity; Z79.82 Long term (current) use of aspirin

== ENCOUNTER 2016-12-14 14:59 | Inpatient (IN) | payer BC, OTHER ==
[2016-12-14] VITALS (8 sets, daily range): BP systolic 97–114; BP diastolic 57–79; PULSE 90–166; TEMP 36.4–36.6; O2SAT 93–97; Ht 180.3 cm; Wt 85.0 kg
[~2016-12-14] VITALS: Ht 180.3 cm; Wt 85.0 kg
[~2016-12-14 14:59] MED LIST changes: +BMX1 PO; +BUME1TAB PO; +CHOL1000 PO; -CHOL100010 PO; -FRS/40 PO; +POTA-65 PO; +XRL10 PO; +XRL15 PO
[2016-12-14] MEDS ORDERED: METOPROLOL TARTRATE 25 MG TAB PO STA (15:19)
[2016-12-14] MEDS ORDERED: SODIUM CHLORIDE 0.9% 1000ML 1,000 ML IV STA (15:19)
[2016-12-14 15:31] LABS: BASO % 0.6 %; BASO ABS # 0.04 K/uL (0-0.2); COMPLETE YES; EOS % 1.7 %; HEMATOCRIT 40.7 % (42-52); IG% 0.3 %; LYMPH % 27.2 %; LYMPH ABS # 1.96 K/uL (1.2-3.4); MEAN CELL VOLUME 98.3 fL (80-100); MEAN CORPUSCULAR HEMOGLOBIN 33.3 pg (25-34); MEAN CORPUSCULAR HGB CONC 33.9 g/dl (32-36); MEAN PLATELET VOLUME 10.3 fL (7.4-10.4); MONO % 10.4 %; NEUT % 59.8 %; PLATELET COUNT 135 K/uL (130-400); RED BLOOD COUNT 4.14 M/uL (4.7-6.1)
[2016-12-14] MEDS ORDERED: METOPROLOL TARTRATE 50 MG TAB ONE (15:35)
--- NOTE | 2016-12-14 15:35 | EMERGENCY ROOM VISIT NOTE ---
History Report prepared by Neil: Shaunna Jaramillo Under the Supervision of: Dr. Pito Jackson M.D. First contact with patient: 15:05 Stated Complaint: AFIB History of Present Illness The patient is a 86 year old male who presents to the Emergency Room for a cardiac assessment. The patient was admitted to the hospital last week for new onset atrial fibrillation with RVR. He was discharged on 12/08/16 after cardioversion. Last night the patient began feeling short of breath and anxious. states that he was unable to sit or lay down. He did not sleep at all. He went to his PCP today and was sent to the ED for further evaluation. The patient was brought to the ED by ambulance. Per EMS, his HR was 150s-160s en route. The patient denies any current chest pain or shortness of breath. He also denies abdominal pain. He is taking Xarelto as prescribed. Source of History: patient, spouse/significant other Onset: last night Position: chest Symptom Intensity: HR 150s-160s Timing: constant Modifying Factors (Worsening): other (new onset a-fib) Associated Symptoms: No chest pain, No SOB, No abdominal pain Review of Systems See HPI for pertinent positives & negatives. A total of 10 systems reviewed and were otherwise negative. Past Medical & Surgical Medical Problems: (1) Atrial fibrillation with rapid ventricular response (2) Atrial tachycardia determined by electrocardiography Family History Non-pertinent due to advanced age. Social History Smoking Status: Unknown if Ever Smoked Marital Status: Housing Status: lives with significant other Occupation Status: retired Current/Historical Medications Scheduled Aspirin (Aspirin 81), 81 MG PO QAM Bumetanide (Bumetanide), 2 MG PO Q2D Bumetanide (Bumex), 3 MG PO Q2D Cholecalciferol (Vitamin D3), 1 TAB PO DAILY Gabapentin (Neurontin), 200 MG PO BID Metoprolol Succ (Toprol Xl) (Toprol-Xl), 25 MG PO QAM Multivitamin (Multivitamin), 1 TAB PO QAM Potassium Chloride (Potassium Chloride ER), 20 MEQ PO DAILY Pravastatin (Pravachol ), 20 MG PO HS Rivaroxaban (Xarelto), 2 TAB PO DAILY Rivaroxaban (Xarelto), 15 MG PO BID Scheduled PRN Tramadol (Ultram), 50 MG PO Q4H PRN for Pain Allergies Coded Allergies: Penicillins (Verified Allergy, Mild, RASH, 04/24/15) Physical Exam Vital Signs Date Time Temp Pulse Resp B/P (MAP) Pulse Ox O2 Delivery O2 Flow Rate FiO2 12/14/16 19:00 111/79 12/14/16 18:41 162 24 96 12/14/16 18:30 102/83 12/14/16 18:11 157 27 97 12/14/16 18:01 100/73 12/14/16 17:41 148 17 97 12/14/16 17:30 108/92 12/14/16 17:11 153 14 98 12/14/16 17:00 102/76 12/14/16 16:41 128 20 97 12/14/16 16:36 140 28 98 12/14/16 16:31 99/71 12/14/16 16:06 139 29 97 12/14/16 16:00 94/80 12/14/16 15:36 119 13 92 12/14/16 15:31 131 105/68 95 12/14/16 15:29 113 29 108/92 94 12/14/16 15:15 153 12/14/16 15:08 110/78 12/14/16 14:59 95 Room Air 12/14/16 14:59 95 Room Air 12/14/16 14:59 36.5 136 22 110/78 95 Room Air 12/14/16 14:59 95 Room Air Physical Exam GENERAL: Patient is a healthy-appearing well-nourished elderly male. HEAD: Normocephalic atraumatic EYES: Ocular movements intact pupils equal and react to light OROPHARYNX mucous membranes are moist no exudates present no erythema or edema present NECK: Supple no nuchal rigidity CHEST: Good equal expansion LUNGS: Clear and equal to auscultation CARDIAC: Normal S1 and S2 ABDOMEN: Soft nontender no guarding BACK: No CVA tenderness EXTREMITIES: No pain upon palpation normal muscle strength in all groups no clubbing cyanosis or edema NEURO: Patient is following commands and answering questions appropriately. Alert and oriented x3 Cranial Nerves 2-12 grossly intact Medical Decision & Procedures ER Provider Diagnostic Interpretation: Radiology results as stated below per my review and radiologist interpretation: SINGLE VIEW CHEST CLINICAL HISTORY: Atypical chest pain. FINDINGS: An AP, portable, upright chest radiograph is compared to study dated 12/07/2016. The patient is status post midline sternotomy. The heart is enlarged and there is atherosclerotic calcification of the thoracic aorta. Pulmonary vascular congestion persists. There are small pleural effusions with bibasilar airspace opacities. The upper lobes appear clear. No pneumothorax is seen. The skeletal structures are osteopenic. The bony thorax is grossly intact. Cholecystectomy clips are seen in the right upper quadrant. IMPRESSION: 1. Cardiomegaly with evidence of congestive failure. This is unchanged to slightly worsened from 12/07/2016. 2. Small pleural effusions with bibasilar airspace opacities. This likely represents atelectasis. Correlated clinically for evidence of a superimposed infectious/inflammatory pneumonitis. Electronically signed by: Donnie Voss M.D. 12/14/2016 3:49 PM Dictated Date/Time: 12/14/2016 3:48 PM Laboratory Results 12/14/16 15:15 Red Blood Count 4.14, Mean Corpuscular Volume 98.3, Mean Corpuscular Hemoglobin 33.3, Mean Corpuscular Hemoglobin Concent 33.9, Mean Platelet Volume 10.3, Neutrophils (%) (Auto) 59.8, Lymphocytes (%) (Auto) 27.2, Monocytes (%) (Auto) 10.4, Eosinophils (%) (Auto) 1.7, Basophils (%) (Auto) 0.6, Neutrophils # (Auto ) 4.31, Lymphocytes # (Auto) 1.96, Monocytes # (Auto) 0.75, Eosinophils # (Auto ) 0.12, Basophils # (Auto) 0.04 12/14/16 15:15 Test 12/14/16 15:15 White Blood Count 7.20 K/uL (4.8-10.8) Red Blood Count 4.14 M/uL (4.7-6.1) Hemoglobin 13.8 g/dL (14.0-18.0) Hematocrit 40.7 % (42-52) Mean Corpuscular Volume 98.3 fL (80-100) Mean Corpuscular Hemoglobin 33.3 pg (25-34) Mean Corpuscular Hemoglobin Concent 33.9 g/dl (32-36) Platelet Count 135 K/uL (130-400) Mean Platelet Volume 10.3 fL (7.4-10.4) Neutrophils (%) (Auto) 59.8 % Lymphocytes (%) (Auto) 27.2 % Monocytes (%) (Auto) 10.4 % Eosinophils (%) (Auto) 1.7 % Basophils (%) (Auto) 0.6 % Neutrophils # (Auto) 4.31 K/uL (1.4-6.5) Lymphocytes # (Auto) 1.96 K/uL (1.2-3.4) Monocytes # (Auto) 0.75 K/uL (0.11-0.59) Eosinophils # (Auto) 0.12 K/uL (0-0.5) Basophils # (Auto) 0.04 K/uL (0-0.2) RDW Standard Deviation 50.0 fL (36.4-46.3) RDW Coefficient of Variation 14.0 % (11.5-14.5) Immature Granulocyte % (Auto) 0.3 % Immature Granulocyte # (Auto) 0.02 K/uL (0.00-0.02) Prothrombin Time 16.8 SECONDS (9.0-12.0) Prothromb Time International Ratio 1.5 (0.9-1.1) Activated Partial Thromboplast Time 32.9 SECONDS (21.0-31.0) Partial Thromboplastin Ratio 1.3 Anion Gap 8.0 mmol/L (3-11) Est Creatinine Clear Calc Drug Dose 51.0 ml/min Estimated GFR () 71.1 Estimated GFR (Non- 61.3 BUN/Creatinine Ratio 19.6 (10-20) Calcium Level 9.4 mg/dl (8.5-10.1) Total Bilirubin 1.0 mg/dl (0.2-1) Direct Bilirubin 0.3 mg/dl (0-0.2) Aspartate Amino Transf (AST/SGOT) 63 U/L (15-37) Alanine Aminotransferase (ALT/SGPT) 63 U/L (12-78) Alkaline Phosphatase 96 U/L (45-117) Total Creatine Kinase 82 U/L (39-308) Creatine Kinase MB 3.4 ng/ml (0.5-3.6) Creatine Kinase MB Ratio 4.1 (0-3.0) Troponin I 0.136 ng/ml (0-0.045) Total Protein 8.2 gm/dl (6.4-8.2) Albumin 3.8 gm/dl (3.4-5.0) Lipase 145 U/L (73-393) Labs reviewed by ED physician. Medications Administered Medications (Trade) Dose Ordered Sig/Anni Route Start Time Stop Time Status Last Admin Dose Admin Sodium Chloride 1,000 ml @ 999 mls/hr Q1H1M STAT IV 12/14/16 15:19 12/14/16 16:19 DC 12/14/16 15:39 999 MLS/HR Metoprolol Tartrate (Lopressor Tab) 50 mg STK-MED ONCE .ROUTE 12/14/16 15:35 12/14/16 15:36 DC 12/14/16 15:40 25 MG ECG Indication: SOB/dyspnea Rate (beats per minute): 130 Rhythm: atrial flutter Findings: T-wave inversion (Inferior), no acute ischemic change ED Course 1505: Past medical records reviewed. 1511: At this time I spoke with Dr. Garcia of [facility]. We discussed the patient's case and he recommended either cardioverting the patient in the ED now or keeping him in the hospital for an ablation on . 1515: The patient was evaluated in room A9B. A complete history and physical examination was performed. 1518: I spoke with Dr. Garcia again at this time. He does not want the patient to be cardioverted in the ED. He recommended oral beta blockers. The patient will remain in the hospital and be ablated on . 1519: NSS 1000 ml @ 999 mls/hr IV, Lopressor 25 mg PO 1521: I updated the patient and his on the results and treatment plan. I answered all pertaining questions that they had. They expressed understanding and they are in agreement with the treatment plan. 1608: I spoke with Dr. Rodrigo Knox. We discussed the patients case, and the patient will be evaluated by the [facility] for further management. Medical Decision Differential diagnosis: Etiologies such as cardiac ischemia, aortic dissection, pulmonary embolism, pneumonia, pneumothorax, musculoskeletal, infections, pericarditis, myocarditis , esophageal rupture, gastrointestinal, as well as others were entertained. Medication Reconciliation: I attest that I have personally reviewed the patient' s current medication list. Blood Pressure Screening: Patient was found to have normal blood pressure on screening and does not require follow up. This is an 86-year-old male with a history of atrial fibrillation who presents emergency department again in atrial fibrillation. The patient is also or also. Due to the patient's recent past medical history I did discuss the case with cardiology. Cardiology asked that the patient be started on oral beta arcade and recommended that we do not defibrillate the patient due to the patient's critical aortic stenosis. For this reason the patient was given metoprolol. I did discuss the case with hospitalist service who agreed to admit the patient. Patient family were in agreement with the treatment plan. Consults Time Called: 151 Consulting Physician: Dr. Garcia Returned Call: 1511 At this time I spoke with Dr. Garcia of [facility]. We discussed the patient's case and he recommended either cardioverting the patient in the ED now or keeping him in the hospital for an ablation on . Additional Consults: Time Called: 1518 Consulted Physician: Dr. Garcia Returned Call: 1518 Additional Comments: I spoke with Dr. Garcia again at this time. He does not want the patient to be cardioverted in the ED. He recommended oral beta blockers. The patient will remain in the hospital and be ablated on . Time Called: 1604 Consulted Physician: Dr. Rodrigo Knox Returned Call: 1608 Additional Comments: I spoke with Dr. Rodrigo Knox. We discussed the patients case, and the patient will be evaluated by the [facility] for further management. Impression Primary Impression: Atrial fibrillation Scribe Attestation The scribe's documentation has been prepared under my direction and personally reviewed by me in its entirety. I confirm that the note above accurately reflects all work, treatment, procedures, and medical decision making performed by me. Departure Information Dispostion Being Evaluated By Hospitalist Referrals Ishaan Perry M.D. (PCP) Problem Qualifiers Primary Impression: Atrial fibrillation Atrial fibrillation type: unspecified Qualified Codes: I48.91 - Unspecified atrial fibrillation
[2016-12-14 15:39] LABS: INR 1.5 (0.9-1.1); PARTIAL THROMBOPLASTIN RATIO 1.3; PROTHROMBIN TIME (PATIENT) 16.8 SECONDS (9.0-12.0)
--- NOTE | 2016-12-14 15:51 | DIAGNOSTIC IMAGING REPORT ---
SINGLE VIEW CHEST CLINICAL HISTORY: Atypical chest pain. FINDINGS: An AP, portable, upright chest radiograph is compared to study dated 12/07/2016. The patient is status post midline sternotomy. The heart is enlarged and there is atherosclerotic calcification of the thoracic aorta. Pulmonary vascular congestion persists. There are small pleural effusions with bibasilar airspace opacities. The upper lobes appear clear. No pneumothorax is seen. The skeletal structures are osteopenic. The bony thorax is grossly intact. Cholecystectomy clips are seen in the right upper quadrant. IMPRESSION: 1. Cardiomegaly with evidence of congestive failure. This is unchanged to slightly worsened from 12/07/2016. 2. Small pleural effusions with bibasilar airspace opacities. This likely represents atelectasis. Correlated clinically for evidence of a superimposed infectious/inflammatory pneumonitis. Electronically signed by: Donnie Voss M.D. 12/14/2016 3:49 PM Dictated Date/Time: 12/14/2016 3:48 PM
[2016-12-14 15:57] LABS: BUN/CREATININE RATIO 19.6 (10-20); CALCIUM 9.4 mg/dl (8.5-10.1); CREATININE 1.1 mg/dl (0.60-1.40); POTASSIUM 4.1 mmol/L (3.5-5.1)
[2016-12-14 16:07] LABS: CKMB/CK RATIO 4.1 (0-3.0)
[2016-12-14] MEDS ORDERED: BUMETANIDE 1 MG TAB PO SCH ×2 (19:00)
[2016-12-14] MEDS ORDERED: TRAMADOL HCL 50 MG TAB PO PRN (19:00)
[2016-12-14] MEDS ORDERED: NITROGLYCERIN 0.4 MG SL PER TAB CHARGE SL PRN (19:15)
[2016-12-14] MEDS ORDERED: MoRPHine SULFATE 2 MG/ML CARP IV PRN (19:15)
[2016-12-14] MEDS ORDERED: POLYETHYLENE (MIRALAX) 17 GM PACK PO PRN (19:15)
[2016-12-14] MEDS ORDERED: ONDANSETRON INJ 2 MG/ML 2 ML VIAL IV PRN (19:15)
[2016-12-14] MEDS ORDERED: ACETAMINOPHEN 325 MG TAB PO PRN (19:15)
[2016-12-14] MEDS ORDERED: ALUMINUM/MAGNESIUM/SIMETH (MAALOX MAX) 30 ML UDC PO PRN (19:15)
[2016-12-14] MEDS ORDERED: MAGNESIUM HYDROXIDE SUSP 30 ML UDC PO PRN (19:15)
--- NOTE | 2016-12-14 19:24 | History and Physical ---
History & Physical Date & Time of Service: Dec 14, 2016 at 19:08 Chief Complaint: AFIB Primary Care Physician: Ishaan Perry M.D. History of Present Illness Source: patient 86F with a PMHx of A. Fib, severe aortic stenosis, CAD s/p bypass surgery presents from Dr. Hanks's office for an elevated heart rate in the 130s. Pt has mild to moderate dementia and there is no family in the room. Pt had difficulty remembering what PCP he came from and why he is on Xarelto. I would recommend corroborating the story when family arrives (they will not be back tonight as per patient). After chart review pt was recently cardioverted at [facility] for A Fib on December 08. Pt had a very difficult anesthesia and was later found to have severe aortic stenosis. Pt denies having any cardiac symptoms. Reports only being hungry - nurse didn' t want to feed pt until he saw the doctor. Pt has a basement at home and doesn' t get short of breath when he walks down the stairs. ROS: Denies chest pain, denies SOB, denies abdominal pain, denies vomiting, denies diaphoresis, denies palpitations. Meds: - Xarelto 15mg BID then Xarelto 20mg daily - unknown reason why - quick review of procedures shows no CTA or US showing blood clot. Pt denies having a blood clot. - Toprol 25mg daily. - Gabapenting 200mg BID Pravastatin 20mg daily - Aspirin 81mg dialy - Bumetanide 2mg and 3mg alternating days. Social History Smoking Status: Unknown if Ever Smoked Marital Status: Occupational Status: retired Multi-Drug Resistant Organisms History of MDRO: No Allergies Coded Allergies: Penicillins (Verified Allergy, Mild, RASH, 04/24/15) Home Medications Scheduled Aspirin (Aspirin 81), 81 MG PO QAM Bumetanide (Bumetanide), 2 MG PO Q2D Bumetanide (Bumex), 3 MG PO Q2D Cholecalciferol (Vitamin D3), 1 TAB PO DAILY Gabapentin (Neurontin), 200 MG PO BID Metoprolol Succ (Toprol Xl) (Toprol-Xl), 25 MG PO QAM Multivitamin (Multivitamin), 1 TAB PO QAM Potassium Chloride (Potassium Chloride ER), 20 MEQ PO DAILY Pravastatin (Pravachol ), 20 MG PO HS Rivaroxaban (Xarelto), 2 TAB PO DAILY Rivaroxaban (Xarelto), 15 MG PO BID Scheduled PRN Tramadol (Ultram), 50 MG PO Q4H PRN for Pain Physical Exam Vital Signs Date Time Temp Pulse Resp B/P (MAP) Pulse Ox O2 Delivery O2 Flow Rate FiO2 12/14/16 16:36 140 28 98 12/14/16 16:31 99/71 12/14/16 16:06 139 29 97 12/14/16 16:00 94/80 12/14/16 15:36 119 13 92 12/14/16 15:31 131 105/68 95 12/14/16 15:29 113 29 108/92 94 12/14/16 15:15 153 12/14/16 15:08 110/78 12/14/16 14:59 95 Room Air 12/14/16 14:59 95 Room Air 12/14/16 14:59 36.5 136 22 110/78 95 Room Air 12/14/16 14:59 95 Room Air General Appearance: WD/WN, no apparent distress, + pertinent finding Respiratory/Chest: chest non-tender, no respiratory distress, no accessory muscle use, + pertinent finding (bibasilar crackles in posterior lung kelley, mid scar on chest from sternal incision. ) Cardiovascular: no JVD, + tachycardia, + irregularly irregular, + pertinent finding (systolic murmur) Abdomen/GI: soft, no organomegaly, no pulsatile mass, normal rectal exam Extremities/Musculoskelatal: no calf tenderness, normal capillary refill, no pedal edema, normal range of motion Neurologic/Psych: normal mood/affect, normal reflexes, oriented x 3, + pertinent finding (Mild dementia, pt asks repetitive questions and cannot remember fine details of his medical care. ) Diagnostics Laboratory Results Results Past 24 Hours Test 12/14/16 15:15 Range/Units White Blood Count 7.20 4.8-10.8 K/uL Red Blood Count 4.14 4.7-6.1 M/uL Hemoglobin 13.8 14.0-18.0 g/dL Hematocrit 40.7 42-52 % Mean Corpuscular Volume 98.3 80-100 fL Mean Corpuscular Hemoglobin 33.3 25-34 pg Mean Corpuscular Hemoglobin Concent 33.9 32-36 g/dl Platelet Count 135 130-400 K/uL Mean Platelet Volume 10.3 7.4-10.4 fL Neutrophils (%) (Auto) 59.8 % Lymphocytes (%) (Auto) 27.2 % Monocytes (%) (Auto) 10.4 % Eosinophils (%) (Auto) 1.7 % Basophils (%) (Auto) 0.6 % Neutrophils # (Auto) 4.31 1.4-6.5 K/uL Lymphocytes # (Auto) 1.96 1.2-3.4 K/uL Monocytes # (Auto) 0.75 0.11-0.59 K/uL Eosinophils # (Auto) 0.12 0-0.5 K/uL Basophils # (Auto) 0.04 0-0.2 K/uL RDW Standard Deviation 50.0 36.4-46.3 fL RDW Coefficient of Variation 14.0 11.5-14.5 % Immature Granulocyte % (Auto) 0.3 % Immature Granulocyte # (Auto) 0.02 0.00-0.02 K/uL Prothrombin Time 16.8 9.0-12.0 SECONDS Prothromb Time International Ratio 1.5 0.9-1.1 Activated Partial Thromboplast Time 32.9 21.0-31.0 SECONDS Partial Thromboplastin Ratio 1.3 Sodium Level 140 136-145 mmol/L Potassium Level 4.1 3.5-5.1 mmol/L Chloride Level 103 98-107 mmol/L Carbon Dioxide Level 29 21-32 mmol/L Anion Gap 8.0 3-11 mmol/L Blood Urea Nitrogen 22 7-18 mg/dl Creatinine 1.10 0.60-1.40 mg/dl Est Creatinine Clear Calc Drug Dose 51.0 ml/min Estimated GFR () 71.1 Estimated GFR (Non- 61.3 BUN/Creatinine Ratio 19.6 10-20 Random Glucose 123 70-99 mg/dl Calcium Level 9.4 8.5-10.1 mg/dl Total Bilirubin 1.0 0.2-1 mg/dl Direct Bilirubin 0.3 0-0.2 mg/dl Aspartate Amino Transf (AST/SGOT) 63 15-37 U/L Alanine Aminotransferase (ALT/SGPT) 63 12-78 U/L Alkaline Phosphatase 96 45-117 U/L Total Creatine Kinase 82 39-308 U/L Creatine Kinase MB 3.4 0.5-3.6 ng/ml Creatine Kinase MB Ratio 4.1 0-3.0 Troponin I 0.136 0-0.045 ng/ml Total Protein 8.2 6.4-8.2 gm/dl Albumin 3.8 3.4-5.0 gm/dl Lipase 145 73-393 U/L Diagnostic Radiology SINGLE VIEW CHEST CLINICAL HISTORY: Atypical chest pain. FINDINGS: An AP, portable, upright chest radiograph is compared to study dated 12/07/2016. The patient is status post midline sternotomy. The heart is enlarged and there is atherosclerotic calcification of the thoracic aorta. Pulmonary vascular congestion persists. There are small pleural effusions with bibasilar airspace opacities. The upper lobes appear clear. No pneumothorax is seen. The skeletal structures are osteopenic. The bony thorax is grossly intact. Cholecystectomy clips are seen in the right upper quadrant. IMPRESSION: 1. Cardiomegaly with evidence of congestive failure. This is unchanged to slightly worsened from 12/07/2016. 2. Small pleural effusions with bibasilar airspace opacities. This likely represents atelectasis. Correlated clinically for evidence of a superimposed infectious/inflammatory pneumonitis. Impression Assessment and Plan 86F with a PMHx of A. Fib, severe aortic stenosis, CAD w bypass surgery presents from Dr. Hanks's office for an elevated heart rate in the 130s. Pt is asymptomatic. Was discharged from [facility] one week ago after cardioversion. Pt has mild to moderate dementia and there is no family in the room. Pt received 1L fluid bolus in the ER with and 75mg PO Lopressor which did not control heart rate. Pt was also given 0.25mg digoxin and then started on a diltiazem drip. Pt was admitted to Observation on telemetry. Cardiology was consulted. Atrial Fibrillation with RVR - Pt is completely asymptomatic. - 0.25mg IV dose of Digoxin in the ER. - after consultation with Dr. Garcia it was decided to start a Diltiazem drip instead of Digoxin for rate control. - Diltiazem drip, 0mg bolus, 5mg start, hold if SBP <90 and HR<70, increase by 5mg every 30 min until HR <100. - Cardiology (Dr. Garcia) consulted. - c/w Xarelto 20mg daily. - c/w Toprol XL 25mg daily. Elevated Troponins 2/2 demand ischemia - Trops were 0.138 Trend Trops Q8 CAD - c/w Aspirin 20mg daily. - c/w Pravastatin 20mg daily. HTN - Hold Bumetanide 2mg and 3mg alternating days due to hypotension. - Hold KLC 20meq daily. Chronic Pain - c/w tramadol 50mg Q4H PRN pain - c/w Gabapentin 200mg BID DVT Proph: On Xarelto as above. Dispo: Tele, Full Code, Heart healthy diet. Code: Full I personally and independently interviewed and examined the patient I reviewed labs and imaging I agree with above mentioned physical exam, History and ROS I discussed and formulated the assessment and plan with Mrs. Dias 86-year-old male P/W recurrent Afib with RVR, failed recent cardioversion and was found to have severe Aortic stenosis rest of ROS is as above PE as above assessment: Recurrent A fib w RVR severe Dementia Border line low BP Plan: S/P lopressor S/P digoxin IV 0.25 X 1, then initiated digoxin po from am will add leilani sinha home health attendant is consulted Maldonado Knox [facility] Hospitalist VTE Prophylaxis VTE Risk Assessment Done? Y/N: Yes Risk Level: Moderate Resident Involvement: Resident Care Provided Care Provided: Adult Hospital Medicine
[2016-12-14] MEDS ORDERED: DILTIAZEM BOLUS / DRIP IV STA (19:44)
[2016-12-14] MEDS: DILTIAZEM HCL INJ 125 MG in DEXTROSE 5% 100ML IV PRN ×2 (20:13→21:04)
[2016-12-14] MEDS ORDERED: DIGOXIN IV 250 MCG in SYRINGE 9 ML IV ONE (20:30)
[2016-12-14] MEDS ORDERED: IV FLUIDS COMPLETED PRN (21:00)
[2016-12-14] MEDS ORDERED: RIVAROXABAN TAB 15 MG TAB PO SCH (21:00)
[2016-12-14] MEDS: GABAPENTIN 100 MG CAP PO SCH (21:59)
[2016-12-14] MEDS: PRAVASTATIN SOD 20 MG TAB PO SCH (21:59)
[2016-12-15] VITALS (9 sets, daily range): BP systolic 110–121; BP diastolic 63–81; PULSE 70–110; TEMP 36.5–36.9; O2SAT 90–96
[2016-12-15] MEDS: GABAPENTIN 100 MG CAP PO SCH ×2 (08:22→20:37)
[2016-12-15] MEDS: MULTIVITAMIN TAB PO SCH (08:22)
[2016-12-15] MEDS: ASPIRIN 81 MG ECTAB PO SCH (08:22)
[2016-12-15] MEDS ORDERED: POTASSIUM CHLORIDE 20 MEQ TABCR PO SCH (09:00)
[2016-12-15] MEDS ORDERED: METOPROLOL SUCC 25MG EXT REL TAB PO SCH (09:00)
[2016-12-15] MEDS ORDERED: DIGOXIN 0.125 MG TAB PO SCH (09:00)
[2016-12-15] MEDS ORDERED: BUMETANIDE IV 2 MG in SYRINGE 0 ML IV ONE (09:45)
--- NOTE | 2016-12-15 10:13 | CARDIOLOGY CONSULTATION ---
DATE OF CONSULTATION: 12/15/2016 REQUESTING: Tanner Estrada MD. CONSULTING: Walker Hanks DO, [facility] Cardiology. REASON FOR CONSULTATION: Recurrent paroxysmal atrial fibrillation and atrial flutter. As you know, Leandro was recently admitted to [facility] given our inability to adequately rate control him given his home situation in which his dementia seems to have progressed and his was very confused with regard to adjustment in his outpatient medications. He was found to be in atrial flutter last week at a rate of about 130 beats per minute. He was completely asymptomatic and was in it for an unknown duration as he had no palpitations, lightheadedness, and he is relatively sedentary at home. He underwent TAJ cardioversion last week with anesthesia. He had significant hypotension. TAJ revealed significant aortic stenosis. He was successfully cardioverted and placed on Xarelto to protect him from cardioembolic events in the following 4 weeks. He subsequently was evaluated post-hospital at his primary care provider's and was found to be in atrial fibrillation with a rapid ventricular response, and therefore, was recommended he go to the Emergency Room. It sounds like he was complaining of some shortness of breath as well. In the room today, he denies any chest pain, chest pressure, chest heaviness. He does appear to be breathing with a respiratory rate of approximately 20-23 per minute. He denies any lightheadedness, dizziness, presyncope or syncope. He is on a Cardizem drip at 5 mg per hour with heart rates in the low 100s. He denies any fevers, chills, sweats. He denies any bleeding, bruising, dark stools or black stools on Xarelto. His appetite at home he notes is stable. He does have some lower extremity edema and some pedal edema. He denies any increased abdominal distention. He continues to have ongoing memory issues and last week in the office was very confused as to even which provider he was seeing and why he was there. The rest of review of systems otherwise negative. PAST MEDICAL HISTORY: 1. Coronary artery disease, status post coronary bypass grafting x2 in 1997 with STYLES to the LAD and a vein graft to the large first diagonal branch at [facility]. 2. Status post PCI and stenting of both the proximal and distal circumflex at [facility] in 11/2005. 3. VIZCAINO with cirrhosis, without evidence of esophageal varices. 4. Hypertension. 5. Hyperlipidemia. 6. Idiopathic polyneuropathy. 7. Less than 50% bilateral internal carotid artery stenosis 11/2011. 8. Abnormal stress test in 2009 with hypokinesis of the basal posterolateral wall that worsened with exercise. 9. Transesophageal echocardiogram last admission with severe aortic stenosis, mild left ventricular hypertrophy, preserved left ventricular systolic function. FAMILY HISTORY: Noncontributory. SOCIAL HISTORY: He is retired from [employer] [address]. He is . He denies any tobacco or alcohol. 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 ALLERGIES: TO PENICILLIN AND STATINS WHICH CAUSED ELEVATED LIVER ENZYMES. MEDICATIONS: Reviewed in electronic medical record. PHYSICAL EXAMINATION: GENERAL: He is awake and alert, he is in the hospital, he is unsure of the date and the time, he thought he was going home today, he is not sure how he got here and exactly why he is here. VITAL SIGNS: His heart rate is 81, his respirations are 17, his blood pressure is 121/81, he is 90% on 5 liters. HEENNT: He is tachycardic. His carotid upstrokes did not appear significantly diminished. His hearing is diminished. LUNGS: Decreased breath sounds, especially in the right base, approximately a quarter of the way up, none on the left. There are no rales, rhonchi or wheezing. HEART: Irregular rate and rhythm (tachycardic). There is a crescendo-decrescendo murmur which is at least mid peaking. ABDOMEN: Distended, firm, nontender, positive bowel sounds. EXTREMITIES: Mild ankle and pedal edema. LABORATORY STUDIES: Hemoglobin 13.8, platelet count 135. Sodium 140, potassium 4.1, BUN 22, creatinine 1.1. His troponin was 0.136 and 0.110. His AST was 63, his ALT was 63. Chest x-ray was read as cardiomegaly with worsening congestive heart failure, small pleural effusions. IMPRESSION: 1. Recurrent asymptomatic paroxysmal atrial fibrillation and atrial flutter. 2. Significant dementia. 3. Plan for rate control strategy given failed cardioversion and his multiple comorbidities. 4. Coronary artery disease, status post coronary bypass grafting in 1997 as described above. 5. Percutaneous coronary intervention of the circumflex in 2005. 6. Severe aortic stenosis. 7. Preserved left ventricular systolic function. Given the fact that he was unable to maintain sinus rhythm and that he cannot be on Ic antiarrhythmics due to his history of coronary disease, he cannot be on amiodarone in discussion with the GI service because of his cirrhosis, and given his dementia and the issues of renal clearance with sotalol and Tikosyn, he is not a candidate for the other class III antiarrhythmics. In light of that, I would recommend a rate control strategy. I would switch his Cardizem over to metoprolol 25 mg b.i.d. as he should be on beta blockers given his cirrhosis without evidence of varices. He will need to remain on Xarelto for a total of 4 weeks after his cardioversion, but long-term we will have to determine if the risk of anticoagulation with Xarelto outweighs the benefit given his dementia and other issues. Additionally, he received digoxin in the ER yesterday. I would continue to dig load him with the idea of using beta-blockers and digoxin to control his heart rate. He does clinically sound like he is having some worsening heart failure based on his lung examination and his chest x-ray. At home he was receiving Bumex 2 mg alternating with 3 mg and he likely will need an IV dose here in the hospital to help improve his diuresis. We will continue to follow with you. Thank you for allowing us to participate in his care. DERICK
[2016-12-15] MEDS: DIGOXIN 0.25 MG TAB PO SCH ×2 (11:30→20:37)
[2016-12-15] MEDS: RIVAROXABAN 10 MG TAB PO SCH (17:28)
[2016-12-15] MEDS: PRAVASTATIN SOD 20 MG TAB PO SCH (20:37)
[2016-12-15] MEDS: METOPROLOL TARTRATE 25 MG TAB PO SCH (20:37)
[2016-12-16 04:39] VITALS: BP 125/86; PULSE 133; TEMP 36.6; O2SAT 95
[2016-12-16] MEDS: METOPROLOL TARTRATE 25 MG TAB PO SCH (04:45)
[2016-12-16 07:22] VITALS: BP 120/87; PULSE 131; TEMP 36.3; O2SAT 93
[2016-12-16] MEDS: GABAPENTIN 100 MG CAP PO SCH ×2 (08:24→21:03)
[2016-12-16] MEDS: MULTIVITAMIN TAB PO SCH (08:24)
[2016-12-16] MEDS: ASPIRIN 81 MG ECTAB PO SCH (08:24)
[2016-12-16] MEDS ORDERED: DILTIAZEM BOLUS / DRIP IV STA (09:31)
--- NOTE | 2016-12-16 09:31 | Cardiology Follow-Up ---
Subjective General Date of Service: Dec 16, 2016. Pt evaluation today including: conversation w/ patient, chart review, lab review, review of studies History of Present Illness The patient is a 86 year old male Allergies Coded Allergies: Penicillins (Verified Allergy, Mild, RASH, 04/24/15) Social History Smoking Status: Never Smoker Hx Tobacco Use In Past Year?: No Hx Alcohol Use - Type And Amou: No Hx Substance Use - Type And Am: No Problem List Medical Problems: (1) Atrial fibrillation Status: Acute Review of Systems Respiratory: + dyspnea at rest, No cough, No dyspnea on exertion Cardiac: + edema, No chest pain, No palpitations Additional ROS Details: Pleasantly confused Physical Exam Vital Signs Last Vital Signs Documentation Date Time Temp Pulse Resp B/P (MAP) Pulse Ox O2 Delivery O2 Flow Rate FiO2 12/16/16 07:22 36.3 131 20 120/87 (98) 93 12/16/16 04:39 Nasal Cannula 12/16/16 04:00 2.0 Physical Exam Constitutional: General Apperance: heathly-appearing Level of Distress: chronically ill Lungs: Auscultation: no wheezing, no rales/crackles, no rhonchi, pertinent finding (decreased BS in the right base) Cardiovascular: Heart Auscultation: no rubs, tachycardia, II/ KATHE Abdomen: Bowel Sounds: normal Inspection & Palpation: soft, non-distended, no tenderness, guarding & rebound Extremities: edema (mild b/l lower ext edema) Assessment and Plan Assessment and Plan IMPRESSION: 1. Recurrent asymptomatic paroxysmal atrial fibrillation and atrial flutter. 2. Significant dementia. 3. Plan for rate control strategy given failed cardioversion and his multiple comorbidities and difficulties with anesthesia with TAJ/CV 2 weeks ago 4. Coronary artery disease, status post coronary bypass grafting x2 in 1997 5. Percutaneous coronary intervention of the circumflex in 2005. 6. Severe aortic stenosis. 7. Preserved left ventricular systolic function. Although he should be on BB with Liver disease he does better here with CCB restart cardizem 5mg/hr drip and cardizem PO 30 mg Q6 with holds echo to assess severity of once rate controlled--ie if he need anesthesia for flutter ablation If we can not control his rate the challenge is what to do. With his dementia and Cirrhosis I would like to avoid invasive procedures and so would the EP service in d/w them. Amio may be our only option but this is very challenging with his Cirrhosis. needs AC (xarelto) x 2 more weeks because of CV two weeks ago but assisted not a good option
[2016-12-16] MEDS ORDERED: BUMETANIDE IV 2 MG in SYRINGE 0 ML IV ONE (09:45)
[2016-12-16] MEDS: DILTIAZEM HCL 30 MG TAB PO SCH ×3 (10:17→21:02)
[2016-12-16 11:34] VITALS: BP 113/80; PULSE 136; TEMP 36.4; O2SAT 92
[2016-12-16] MEDS: DILTIAZEM HCL INJ 125 MG in DEXTROSE 5% 100ML IV PRN (12:07)
--- NOTE | 2016-12-16 12:39 | Clinical Documentation Query ---
CLINICAL DOCUMENTATION QUERY Dr. MUELLER, In your clinical opinion is this patient being managed for: ( x) possible Acute diastolic CHF ( ) Acute systolic CHF ( ) Other explanation of clinical findings (Please Explain) ( ) Unable to determine (Please Define) ( ) Need to Discuss ( ) Not Agree The medical record reflects the following clinical findings, treatment, and risk factors. Clinical Indicators: 86 yo male presenting with increasing dyspnea. Found to be in A fib again, following a successful cardioversion last week for his new onset A fib. CXR showed cardiomegaly with evidence of congestive failure. H/P indicates pt with bibasilar crackles. ECHO last week showed preserved L ventricular systolic function. Treatment:tele, cardiology consult, IV bumex, O2 support, digoxin, cardizem gtt, lopressor Risk Factors: A fib, age, CAD, HTN, VIZCAINO, aortic stenosis Please clarify and document your clinical opinion in the progress notes and discharge summary. Terms such as "probable", "suspected", "likely", "questionable", "possible", or "still to be ruled out" are acceptable. IF IN AGREEMENT, YOU MUST DOCUMENT ABOVE DIAGNOSTIC STATEMENT IN DAILY PROGRESS NOTES AND DISCHARGE SUMMARY. This document is not part of the patient's record. Thank You, Pat Mccord, SUZAN [phone]
--- NOTE | 2016-12-16 14:15 | Progress Note ---
Subjective Date of Service: Dec 16, 2016. Subjective Pt evaluation today including: conversation w/ patient, physical exam, chart review, lab review, review of studies, conversation w/ it security consultant, review of inpatient medication list doing okay, still having A. fib, lower extremity edema is not new, denied chest pain palpitations Problem List Medical Problems: (1) Atrial fibrillation Status: Acute Review of Systems Constitutional: + weakness, + fatigue, No fever, No chills, No sweats, No weight loss, No problem reported Eyes: No worsening of vision, No eye pain, No redness, No discharge, No diplopia ENT: No hearing loss, No unusual epistaxis, No nasal symptoms, No sore throat, No tinnitus, No dental problems, No trouble swallowing Respiratory: No cough, No sputum, No wheezing, No shortness of breath, No dyspnea on exertion, No dyspnea at rest, No hemoptysis Cardiac: + edema, + palpitations, No chest pain, No orthopnea, No PND, No claudication Abdomen: No pain, No nausea, No vomiting, No diarrhea, No constipation Musculoskeletal: No joint pain, No muscle pain, No swelling, No calf pain Male : No dysuria, No urinary frequency, No incontinence, No nocturia more than once/night, No slowing stream, No hematuria Neurologic: No memory loss, No paralysis, No weakness, No numbness/tingling, No vertigo, No balance problems Psychiatric: No depression symptoms, No anhedonism, No anxiety, No insomnia, No substance abuse Heme: No abnormal bleeding/bruising, No clotting problems, No swollen lymph nodes, No night sweats Endo: No fatigue, No excessive thirst, No excessive urination Skin: No rash, No itch, No new/changing skin lesions, No color change, No bleeding Objective Vital Signs Date Time Temp Pulse Resp B/P (MAP) Pulse Ox O2 Delivery O2 Flow Rate FiO2 12/16/16 12:17 Nasal Cannula 2.0 12/16/16 11:34 36.4 136 22 113/80 (91) 92 Room Air 12/16/16 08:00 Nasal Cannula 2.0 12/16/16 07:22 36.3 131 20 120/87 (98) 93 12/16/16 04:39 36.6 133 18 125/86 (99) 95 Nasal Cannula 12/16/16 04:00 Nasal Cannula 2.0 12/15/16 23:59 Nasal Cannula 2.0 12/15/16 23:52 36.8 70 20 115/77 (90) 94 Nasal Cannula 12/15/16 20:37 114 12/15/16 20:34 36.8 88 18 110/68 (82) 95 12/15/16 20:00 95 Nasal Cannula 2.0 12/15/16 16:00 96 Nasal Cannula 2.0 12/15/16 15:53 36.9 83 18 115/63 (80) 96 Physical Exam General Appearance: WD/WN, no apparent distress Eyes: normal inspection, PERRL, EOMI, sclerae normal ENT: normal ENT inspection, hearing grossly normal, pharynx normal Neck: supple, no adenopathy, thyroid normal, no JVD, no carotid bruits, trachea midline Respiratory/Chest: chest non-tender, normal breath sounds, no respiratory distress, no accessory muscle use, + decreased breath sounds, + crackles (base lungs) Cardiovascular: regular rate, rhythm, no edema, no gallop, no JVD, no murmur, + irregularly irregular Abdomen: normal bowel sounds, non tender, soft, no organomegaly, no pulsatile mass Extremities: normal range of motion, non-tender, normal inspection, normal capillary refill, pelvis stable, + swelling 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 Hanks's office for an elevated heart rate in the 130s. Pt was asymptomatic. Was discharged from [facility] one week ago after cardioversion. In the emergency room , he got 1L fluid bolus in the ER with and 75mg PO Lopressor which did not control heart rate. Pt was also given 0.25mg digoxin and then started on a diltiazem drip. Gabriel hall with [facility] Cardiology see patient Per transformation architect , Because of his history of liver cirrhosis, and dementia and the issues of renal clearance with sotalol and Tikosyn, he is not a candidate for the other class III antiarrhythmics. Gospel Singer recommend a rate control strategy switch his Cardizem over to metoprolol 25 mg b.i.d. as he should be on beta blockers given his cirrhosis without evidence of varices. Cardiology at discharge soon as well Per transformation architect , John for a total of 4 weeks after his cardioversion, but does not recommend Xarelto for long-term anticoagulation for stroke prevention because the risk outweighs thebenefit given his dementia and other issues. possible Acute diastolic CHF We'll continue home dose of Bumex and watch i&O Minimal elevated troponin likely because of demanding ischemia patient has no chest pain will watch GI and DVT prophylaxis covered this note is for service on 12/15/2016 Continued [facility] stay due to: multiple IV medications needed Discharge planning: home
--- NOTE | 2016-12-16 14:35 | Progress Note ---
Subjective Date of Service: Dec 16, 2016. Subjective Pt evaluation today including: conversation w/ patient, physical exam, chart review, lab review, review of studies, conversation w/ consultant technology, review of inpatient medication list Sitting up in chair, heart rate at 130s, Is on Cardizem drip Complain of lower extremity swelling Which is not new Problem List Medical Problems: (1) Atrial fibrillation Status: Acute Review of Systems Constitutional: No fever, No chills, No sweats, No weight loss, No weakness, No fatigue, No problem reported Eyes: No worsening of vision, No eye pain, No redness, No discharge, No diplopia ENT: No hearing loss, No unusual epistaxis, No nasal symptoms, No sore throat, No tinnitus, No dental problems, No trouble swallowing Respiratory: No cough, No sputum, No wheezing, No shortness of breath, No dyspnea on exertion, No dyspnea at rest, No hemoptysis Cardiac: + edema (1-2+), + palpitations, No chest pain, No orthopnea, No PND, No claudication Abdomen: No pain, No nausea, No vomiting, No diarrhea, No constipation Musculoskeletal: No joint pain, No muscle pain, No swelling, No calf pain Male : No dysuria, No urinary frequency, No incontinence, No nocturia more than once/night, No slowing stream, No hematuria Neurologic: No memory loss, No paralysis, No weakness, No numbness/tingling, No vertigo, No balance problems Psychiatric: No depression symptoms, No anhedonism, No anxiety, No insomnia, No substance abuse Heme: No abnormal bleeding/bruising, No clotting problems, No swollen lymph nodes, No night sweats Endo: No fatigue, No excessive thirst, No excessive urination Skin: No rash, No itch, No new/changing skin lesions, No color change, No bleeding Objective Vital Signs Date Time Temp Pulse Resp B/P (MAP) Pulse Ox O2 Delivery O2 Flow Rate FiO2 12/16/16 12:17 Nasal Cannula 2.0 12/16/16 11:34 36.4 136 22 113/80 (91) 92 Room Air 12/16/16 08:00 Nasal Cannula 2.0 12/16/16 07:22 36.3 131 20 120/87 (98) 93 12/16/16 04:39 36.6 133 18 125/86 (99) 95 Nasal Cannula 12/16/16 04:00 Nasal Cannula 2.0 12/15/16 23:59 Nasal Cannula 2.0 12/15/16 23:52 36.8 70 20 115/77 (90) 94 Nasal Cannula 12/15/16 20:37 114 12/15/16 20:34 36.8 88 18 110/68 (82) 95 12/15/16 20:00 95 Nasal Cannula 2.0 12/15/16 16:00 96 Nasal Cannula 2.0 12/15/16 15:53 36.9 83 18 115/63 (80) 96 Physical Exam General Appearance: WD/WN, no apparent distress Eyes: normal inspection, PERRL, EOMI, sclerae normal ENT: normal ENT inspection, hearing grossly normal, pharynx normal Neck: supple, no adenopathy, thyroid normal, no JVD, no carotid bruits, trachea midline Respiratory/Chest: chest non-tender, normal breath sounds, no respiratory distress, no accessory muscle use, + decreased breath sounds Cardiovascular: regular rate, rhythm, no edema, no gallop, no JVD, no murmur Abdomen: normal bowel sounds, non tender, soft, no organomegaly, no pulsatile mass Extremities: normal range of motion, non-tender, normal inspection, no pedal edema, no calf tenderness, normal capillary refill, pelvis stable, + swelling ( jere feet are swelling) 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 Hanks's office for an elevated heart rate in the 130s. Pt was asymptomatic. Was discharged from [facility] one week ago after cardioversion. In the emergency room , he got 1L fluid bolus in the ER with and 75mg PO Lopressor which did not control heart rate. Pt was also given 0.25mg digoxin and then started on a diltiazem drip. Gabriel fisher with [facility] Was planning to give beta travis and dig to control heart rate However it is not able to control heart rate, Cardizem drip continue Per cardiology Because of his history of liver cirrhosis, and dementia and the issues of renal clearance with sotalol and Tikosyn, he is not a candidate for the other class III antiarrhythmics. Lean Facilitator recommend a rate control strategy switch his Cardizem over to metoprolol 25 mg b.i.d. as he should be on beta blockers given his cirrhosis without evidence of varices. Continue Cardizem drip Per medical education specialist , Nasrelpeg for a total of 4 weeks after his cardioversion, but does not recommend Xarelto for long-term anticoagulation for stroke prevention because the risk outweighs thebenefit given his dementia and other issues. possible Acute diastolic CHF We'll continue home dose of Bumex and watch i&O Minimal elevated troponin likely because of demanding ischemia patient has no chest pain will watch GI and DVT prophylaxis covered Discussed with patient about care plan answer all questions Continued [facility] stay due to: multiple IV medications needed Discharge planning: home
[2016-12-16 15:21] VITALS: BP 98/62; PULSE 73; TEMP 36.7; O2SAT 94
[2016-12-16] MEDS: RIVAROXABAN 10 MG TAB PO SCH (17:28)
[2016-12-16] MEDS: DIGOXIN 0.125 MG TAB PO SCH (17:28)
[2016-12-16 20:16] VITALS: BP 120/72; PULSE 68; TEMP 36.7; O2SAT 91
[2016-12-16] MEDS: PRAVASTATIN SOD 20 MG TAB PO SCH (21:03)
[2016-12-17] VITALS: BP 122/83; PULSE 74; TEMP 36.8; O2SAT 95
[2016-12-17 05:20] VITALS: BP 128/70; PULSE 98; TEMP 36.3; O2SAT 95
[2016-12-17 07:41] VITALS: BP 151/71; PULSE 90; TEMP 36.4; O2SAT 94
[2016-12-17 07:54] LABS: BLOOD UREA NITROGEN 27 mg/dl (7-18); BUN/CREATININE RATIO 26.8 (10-20); CALCIUM 9.1 mg/dl (8.5-10.1); CARBON DIOXIDE 27 mmol/L (21-32); CHLORIDE 103 mmol/L (98-107); GLUCOSE 105 mg/dl (70-99); SODIUM 140 mmol/L (136-145)
[2016-12-17] MEDS: DILTIAZEM HCL 30 MG TAB PO SCH (08:23)
[2016-12-17] MEDS: MULTIVITAMIN TAB PO SCH (08:23)
[2016-12-17] MEDS: BUMETANIDE 1 MG TAB PO SCH (08:24)
[2016-12-17] MEDS: GABAPENTIN 100 MG CAP PO SCH ×2 (08:24→20:47)
[2016-12-17] MEDS: ASPIRIN 81 MG ECTAB PO SCH (08:24)
[2016-12-17 08:37] LABS: MAGNESIUM 2.2 mg/dl (1.8-2.4)
--- NOTE | 2016-12-17 08:55 | Cardiology Follow-Up ---
Subjective General Date of Service: Dec 17, 2016. Pt evaluation today including: conversation w/ patient, conversation w/ family , chart review, lab review, review of studies History of Present Illness The patient is a 86 year old male Allergies Coded Allergies: Penicillins (Verified Allergy, Mild, RASH, 04/24/15) Social History Smoking Status: Never Smoker Hx Tobacco Use In Past Year?: No Hx Alcohol Use - Type And Amou: No Hx Substance Use - Type And Am: No Problem List Medical Problems: (1) Atrial fibrillation Status: Acute Review of Systems Respiratory: No cough, No shortness of breath, No dyspnea on exertion Cardiac: + edema, No chest pain, No palpitations Physical Exam Vital Signs Last Vital Signs Documentation Date Time Temp Pulse Resp B/P (MAP) Pulse Ox O2 Delivery O2 Flow Rate FiO2 12/17/16 08:00 Nasal Cannula 2.0 12/17/16 07:41 36.4 90 16 151/71 (97) 94 Physical Exam Constitutional: General Apperance: heathly-appearing Level of Distress: chronically ill Lungs: Auscultation: no wheezing, no rales/crackles, no rhonchi, pertinent finding (decreased BS in the right base) Cardiovascular: Heart Auscultation: no rubs, II/ KATHE, irregular rate rhythm Abdomen: Bowel Sounds: normal Inspection & Palpation: soft, non-distended, no tenderness, guarding & rebound Extremities: edema (mild b/l lower ext edema) Assessment and Plan Assessment and Plan IMPRESSION: 1. Recurrent asymptomatic paroxysmal atrial fibrillation and atrial flutter. 2. Significant dementia. 3. Plan for rate control strategy given failed cardioversion and his multiple comorbidities and difficulties with anesthesia with TAJ/CV 2 weeks ago 4. Coronary artery disease, status post coronary bypass grafting x2 in 1997 5. Percutaneous coronary intervention of the circumflex in 2005. 6. Severe aortic stenosis. 7. Preserved left ventricular systolic function. Although he should be on BB with Liver disease he does better here with CCB d/c cardizem drip and change cardizem CD 120mg daily with PRN dose Cont dig 0.125 daily and xarelto Hopefully home tomorrow echo to assess severity of once rate controlled--ie if he need anesthesia for flutter ablation If we can not control his rate the challenge is what to do. With his dementia and Cirrhosis I would like to avoid invasive procedures and so would the EP service in d/w them. Amio may be our only option but this is very challenging with his Cirrhosis. needs AC (xarelto) x 2 more weeks because of CV two weeks ago but penitentiary not a good option Laboratory Results Last 24 Hours Test 12/16/16 14:23 12/16/16 14:39 12/17/16 06:42 12/17/16 08:12 Creatine Kinase MB Ratio Creatine Kinase MB 3.5 ng/ml Troponin I 0.070 ng/ml Sodium Level 140 mmol/L Potassium Level mmol/L 4.0 mmol/L Chloride Level 103 mmol/L Carbon Dioxide Level 27 mmol/L Anion Gap 10.0 mmol/L Blood Urea Nitrogen 27 mg/dl Creatinine 1.00 mg/dl Est Creatinine Clear Calc Drug Dose 57.3 ml/min Estimated GFR () 79.7 Estimated GFR (Non- 68.8 BUN/Creatinine Ratio 26.8 Random Glucose 105 mg/dl Calcium Level 9.1 mg/dl Magnesium Level mg/dl 2.2 mg/dl
[2016-12-17] MEDS ORDERED: DILTIAZEM HCL 30 MG TAB PO PRN (09:00)
[2016-12-17] MEDS: DILTIAZEM HCL 120 MG CAPCR PO SCH (09:42)
[2016-12-17] MEDS ORDERED: NURSING VERBAL MED ORDER ONE (09:45)
--- NOTE | 2016-12-17 11:12 | Progress Note ---
Subjective Date of Service: Dec 17, 2016. Subjective Pt evaluation today including: conversation w/ patient, conversation w/ family , physical exam, chart review, lab review, review of studies, conversation w/ software developer consultant, review of inpatient medication list Pleasant, conversational, reported lower extremity edema possible better No other complaint Problem List Medical Problems: (1) Atrial fibrillation Status: Acute Review of Systems Constitutional: + weakness, + fatigue, No fever, No chills, No sweats, No weight loss, No problem reported Eyes: No worsening of vision, No eye pain, No redness, No discharge, No diplopia ENT: No hearing loss, No unusual epistaxis, No nasal symptoms, No sore throat, No tinnitus, No dental problems, No trouble swallowing Respiratory: No cough, No sputum, No wheezing, No dyspnea on exertion, No dyspnea at rest, No hemoptysis Cardiac: + edema, No chest pain, No orthopnea, No PND, No claudication, No palpitations Abdomen: No pain, No nausea, No vomiting, No diarrhea, No constipation Musculoskeletal: No joint pain, No muscle pain, No swelling, No calf pain Male : No dysuria, No urinary frequency, No incontinence, No nocturia more than once/night, No slowing stream, No hematuria Neurologic: No memory loss, No paralysis, No weakness, No numbness/tingling, No vertigo, No balance problems Psychiatric: No depression symptoms, No anhedonism, No anxiety, No insomnia, No substance abuse Heme: No abnormal bleeding/bruising, No clotting problems, No swollen lymph nodes, No night sweats Endo: No fatigue, No excessive thirst, No excessive urination Skin: No rash, No itch, No new/changing skin lesions, No color change, No bleeding Objective Vital Signs Date Time Temp Pulse Resp B/P (MAP) Pulse Ox O2 Delivery O2 Flow Rate FiO2 12/17/16 08:00 Nasal Cannula 2.0 12/17/16 07:41 36.4 90 16 151/71 (97) 94 2.0 12/17/16 05:20 36.3 98 20 128/70 (89) 95 Nasal Cannula 2.0 12/17/16 04:00 Nasal Cannula 2.0 12/17/16 00:00 36.8 74 17 122/83 (96) 95 Nasal Cannula 2.0 12/16/16 23:30 Nasal Cannula 2.0 12/16/16 20:16 36.7 68 21 120/72 (88) 91 Room Air 12/16/16 20:00 Room Air 12/16/16 17:28 80 12/16/16 16:03 Nasal Cannula 2.0 12/16/16 15:21 36.7 73 22 98/62 (74) 94 Nasal Cannula 2.0 Humidified Air 12/16/16 12:17 Nasal Cannula 2.0 12/16/16 11:34 36.4 136 22 113/80 (91) 92 Room Air Physical Exam General Appearance: WD/WN, no apparent distress Eyes: normal inspection, PERRL, EOMI, sclerae normal ENT: normal ENT inspection, hearing grossly normal, pharynx normal Neck: supple, no adenopathy, thyroid normal, no JVD, no carotid bruits, trachea midline Respiratory/Chest: chest non-tender, normal breath sounds, no respiratory distress, no accessory muscle use, + decreased breath sounds Cardiovascular: no edema, no gallop, no JVD, + systolic murmur, + irregularly irregular Abdomen: normal bowel sounds, non tender, soft, no organomegaly, no pulsatile mass Extremities: normal range of motion, non-tender, normal inspection, no pedal edema, no calf tenderness, normal capillary refill, pelvis stable, + swelling ( bilateral lower extremity and feet, 1-2+, seems better than yesterday) Neurologic/Psychiatric: 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 nml as tested, no motor/sensory deficits, alert, normal mood/affect, oriented x 3 Skin: normal color, warm/dry, no rash Lymphatic: no adenopathy Laboratory Results Last 24 Hours Test 12/16/16 14:23 12/16/16 14:39 12/17/16 06:42 12/17/16 08:12 Creatine Kinase MB Ratio Creatine Kinase MB 3.5 ng/ml Troponin I 0.070 ng/ml Sodium Level 140 mmol/L Potassium Level mmol/L 4.0 mmol/L Chloride Level 103 mmol/L Carbon Dioxide Level 27 mmol/L Anion Gap 10.0 mmol/L Blood Urea Nitrogen 27 mg/dl Creatinine 1.00 mg/dl Est Creatinine Clear Calc Drug Dose 57.3 ml/min Estimated GFR () 79.7 Estimated GFR (Non- 68.8 BUN/Creatinine Ratio 26.8 Random Glucose 105 mg/dl Calcium Level 9.1 mg/dl Magnesium Level mg/dl 2.2 mg/dl Assessment and Plan 86F with a PMHx of Gabriel [place], severe aortic stenosis, CAD w bypass surgery Admitted on emergency known on 12/14/2016 Per report initially he was seen by Dr. Hanks's office for an elevated heart rate in the 130s. Pt was asymptomatic. Was discharged from [facility] one week ago after cardioversion. In the emergency room , he got 1L fluid bolus in the ER with and 75mg PO Lopressor which did not control heart rate. Pt was also given 0.25mg digoxin and then started on a diltiazem drip. Gabriel hall with RVR Was planning to give beta travis and dig to control heart rate However it is not able to control heart rate, Per cardiology Because of his history of liver cirrhosis, and dementia and the issues of renal clearance with sotalol and Tikosyn, he is not a candidate for the other class III antiarrhythmics. Initially client technical support associate recommend a rate control strategy switch his Cardizem over to metoprolol 25 mg b.i.d. as he should be on beta blockers given his cirrhosis without evidence of varices. Per client technical support associate , although he should be on BB with Liver disease he does better here with CCB d/c cardizem drip and change cardizem CD 120mg daily with PRN dose Cont dig 0.125 daily and xarelto Xarelto for a total of 4 weeks after his cardioversion, but does not recommend Xarelto for long-term anticoagulation for stroke prevention because the risk outweighs the benefit given his dementia and other issues. possible Acute diastolic CHF continue home dose of Bumex and watch i&O Minimal elevated troponin likely because of demanding ischemia patient has no chest pain will watch Significant dementia. Coronary artery disease, status post coronary bypass grafting x2 in 1997 Percutaneous coronary intervention of the circumflex in 2005. Severe aortic stenosis. Patient was not on oxygen before admission, will taper off oxygen if possible GI and DVT prophylaxis covered Discussed with patient and family Continued [facility] stay due to: multiple IV medications needed Discharge planning: home
[2016-12-17 12:01] VITALS: BP 138/88; PULSE 98; TEMP 36.4; O2SAT 92
[2016-12-17 16:09] VITALS: BP 137/72; PULSE 88; TEMP 36.4; O2SAT 93
[2016-12-17] MEDS: DIGOXIN 0.125 MG TAB PO SCH (16:39)
[2016-12-17] MEDS: RIVAROXABAN 10 MG TAB PO SCH (16:41)
--- NOTE | 2016-12-17 17:36 | ECHOCARDIOGRAM REPORT ---
*NOTICE TO RECEIVING DEMOCRAT AGENCY This information is strictly Confidential and protected under [place] law. [place] law prohibits you from making any further disclosure of this information unless further disclosure is expressly permitted by the written consent of the person to whom it pertains or is authorized by law. A general authorization for the release of medical or other information is not sufficient for this purpose. Hospital accepts no responsibility if the information is made available to any other person, INCLUDING THE PATIENT. Interpretation Summary * Name: REUBEN PALMER Study Date: 12/17/2016 03:35 PM BP: 138/88 mmHg * Patient Location: C.2T\S\S231\S\1 HR: 93 * : 1930 (M/d/yyyy) Gender: Male Height: 67 in * Age: 86 yrs Ethnicity: [place] Weight: 187 lb * Ordering Physician: Walker Hanks * Referring Physician: No Doctor, Assigned * Performed By: Catherine Thorne RCS * * Reason For Study: EVAL SEVERITY OF AND LV FX * BSA: 2.0 m2 * -- Conclusions -- * 1. Normal LV size. Moderate concentric LVH. * 2. Normal LV systolic function. LVEF 60-65%. No regional wall motion abnormalities. * 3. Normal RV size and function. * 4. Calcific, moderate (DESEAN 1.5 cm2). Mild AI * 5. Mild MR Procedure Details * Limited views were obtained. Left Ventricle * The left ventricle is grossly normal size. * There is moderate concentric left ventricular hypertrophy. * Ejection Fraction = 60-65%. Right Ventricle * The right ventricular cavity size is normal (basal dimension <4.2 cm in right ventricular apical 4-chamber view). * The right ventricular systolic function is normal as assessed by tricuspid annular plane systolic excursion (TAPSE) (normal >1.5 cm). Atria * The left atrium is moderately dilated. * The right atrium is mildly dilated. * There is no evidence of atrial septal defect, but resolution does not allow assessment for a patent foramen ovale. Mitral Valve * There is moderate mitral annular calcification. * There is no mitral valve stenosis. * There is mild mitral regurgitation. Tricuspid Valve * The tricuspid valve is not well visualized, but is grossly normal. * Tricuspid stenosis is absent. * There is trace tricuspid regurgitation. Aortic Valve * Thickened, calcified and restricted. * Moderate valvular aortic stenosis. * Mild aortic regurgitation. Pulmonic Valve * The pulmonic valve is not well visualized. Great Vessels * The aortic root and proximal ascending aorta are normal sized. Pericardium/Pleural * There is no pericardial effusion. MMode 2D Measurements and Calculations IVSd 1.7 cm IVSs 1.8 cm LVIDd 4.4 cm LVIDs 3.8 cm LVPWd 1.6 cm LVPWs 1.6 cm IVS/LVPW 1.0 FS 14.6 % EDV(Teich) 89.4 ml ESV(Teich) 61.6 ml EF(Teich) 31.1 % EDV(cubed) 87.3 ml ESV(cubed) 54.5 ml EF(cubed) 37.6 % % IVS thick 10.2 % % LVPW thick -5.72 % LV mass(C)d 313.5 grams LV mass(C)dI 159.5 grams/m\S\2 LV mass(C)s 261.7 grams LV mass(C)sI 133.2 grams/m\S\2 SV(Teich) 27.8 ml SI(Teich) 14.1 ml/m\S\2 SV(cubed) 32.8 ml SI(cubed) 16.7 ml/m\S\2 Ao root diam 3.2 cm Ao root area 8.2 cm\S\2 LA dimension 5.0 cm LA/Ao 1.5 LVOT diam 2.0 cm LVOT area 3.3 cm\S\2 Doppler Measurements and Calculations Ao V2 max 255.3 cm/sec Ao max PG 26.1 mmHg Ao max PG (full) 20.4 mmHg Ao V2 mean 177.3 cm/sec Ao mean PG 14.7 mmHg Ao mean PG (full) 11.6 mmHg Ao V2 VTI 46.0 cm DESEAN(I,A) 1.5 cm\S\2 DESEAN(I,D) 1.5 cm\S\2 DESEAN(V,A) 1.5 cm\S\2 DESEAN(V,D) 1.5 cm\S\2 AI max dahlia 372.2 cm/sec AI max PG 55.7 mmHg AI dec slope 173.3 cm/sec\S\2 AI P1/2t 628.9 msec LV V1 max PG 5.7 mmHg LV V1 mean PG 3.1 mmHg LV V1 max 119.2 cm/sec LV V1 mean 78.3 cm/sec LV V1 VTI 21.4 cm SV(Ao) 374.9 ml SI(Ao) 190.8 ml/m\S\2 SV(LVOT) 70.4 ml SI(LVOT) 35.8 ml/m\S\2 TR max dahlia 291.9 cm/sec
[2016-12-17 18:58] VITALS: BP 127/68; PULSE 69; TEMP 36.6; O2SAT 93
[2016-12-17] MEDS: PRAVASTATIN SOD 20 MG TAB PO SCH (20:47)
[2016-12-18] VITALS (7 sets, daily range): BP systolic 119–154; BP diastolic 63–79; PULSE 50–112; TEMP 36.5–36.9; O2SAT 92–95
[2016-12-18] MEDS: GABAPENTIN 100 MG CAP PO SCH ×2 (07:06→20:44)
[2016-12-18] MEDS: DILTIAZEM HCL 120 MG CAPCR PO SCH (07:07)
[2016-12-18] MEDS: BUMETANIDE 1 MG TAB PO SCH (07:08)
[2016-12-18] MEDS: MULTIVITAMIN TAB PO SCH (07:09)
[2016-12-18] MEDS: ASPIRIN 81 MG ECTAB PO SCH (07:09)
[2016-12-18] MEDS ORDERED: LNX125 PO (13:04)
[2016-12-18] MEDS ORDERED: DILT120C50 PO (13:04)
[2016-12-18] MEDS ORDERED: CRD30 PO (13:04)
--- NOTE | 2016-12-18 14:51 | Progress Note ---
Subjective Date of Service: Dec 18, 2016. Subjective Pt evaluation today including: conversation w/ patient, conversation w/ family , physical exam, chart review, lab review, review of studies, review of inpatient medication list Heart rate was up to 110 this morning, although bed to the chair, not up and walk yet Report lower extremity edema and swelling which is not new Problem List Medical Problems: (1) Atrial fibrillation Status: Acute Review of Systems Constitutional: No fever, No chills, No sweats, No weight loss, No weakness, No fatigue, No problem reported Eyes: No worsening of vision, No eye pain, No redness, No discharge, No diplopia ENT: No hearing loss, No unusual epistaxis, No nasal symptoms, No sore throat, No tinnitus, No dental problems, No trouble swallowing Respiratory: No cough, No sputum, No wheezing, No shortness of breath, No dyspnea on exertion, No dyspnea at rest, No hemoptysis Cardiac: No chest pain, No orthopnea, No PND, No edema, No claudication, No palpitations Abdomen: No pain, No nausea, No vomiting, No diarrhea, No constipation Musculoskeletal: No joint pain, No muscle pain, No swelling, No calf pain Male : No dysuria, No urinary frequency, No incontinence, No nocturia more than once/night, No slowing stream, No hematuria Neurologic: No memory loss, No paralysis, No weakness, No numbness/tingling, No vertigo, No balance problems Psychiatric: No depression symptoms, No anhedonism, No anxiety, No insomnia, No substance abuse Heme: No abnormal bleeding/bruising, No clotting problems, No swollen lymph nodes, No night sweats Endo: No fatigue, No excessive thirst, No excessive urination Skin: No rash, No itch, No new/changing skin lesions, No color change, No bleeding Objective Vital Signs Date Time Temp Pulse Resp B/P (MAP) Pulse Ox O2 Delivery O2 Flow Rate FiO2 12/18/16 12:27 36.6 69 16 119/63 (81) 92 Room Air 12/18/16 12:03 Room Air 12/18/16 08:14 36.8 112 16 119/66 (83) 93 12/18/16 08:00 Room Air 12/18/16 04:00 36.6 72 22 128/74 (92) 95 Room Air 6/24/17 04:00 Room Air 12/18/16 00:00 36.7 67 22 134/68 (90) 95 Room Air 12/17/16 23:59 Room Air 12/17/16 20:00 Room Air 12/17/16 18:58 36.6 69 18 127/68 (87) 93 Room Air 12/17/16 16:39 80 12/17/16 16:09 36.4 88 20 137/72 (93) 93 Room Air 12/17/16 16:00 Room Air Physical Exam General Appearance: WD/WN, no apparent distress Eyes: normal inspection, PERRL, EOMI, sclerae normal ENT: normal ENT inspection, hearing grossly normal, pharynx normal Neck: supple, no adenopathy, thyroid normal, no JVD, no carotid bruits, trachea midline Respiratory/Chest: chest non-tender, lungs clear, normal breath sounds, no respiratory distress, no accessory muscle use Cardiovascular: regular rate, rhythm, no edema, no gallop, no JVD, no murmur, + friction rub Abdomen: normal bowel sounds, non tender, soft, no organomegaly, no pulsatile mass Extremities: normal range of motion, non-tender, normal inspection, no pedal edema, no calf tenderness, normal capillary refill, pelvis stable Neurologic/Psychiatric: 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 Hanks's office for an elevated heart rate in the 130s. Pt was asymptomatic. Was [place] [facility] [place] ago after cardioversion. In the emergency room , he got 1L fluid bolus in the ER with and 75mg PO Lopressor which did not control heart rate. Pt was also given 0.25mg digoxin and then started on a diltiazem drip. Gabriel hall with RVR is getting better Was planning to give beta travis and dig to control heart rate However it is not able to control heart rate, Per cardiology Because of his history of liver cirrhosis, and dementia and the issues of renal clearance with sotalol and Tikosyn, he is not a candidate for the other class III antiarrhythmics. Initially detailer recommend a rate control strategy switch his Cardizem over to metoprolol 25 mg b.i.d. as he should be on beta blockers given his cirrhosis without evidence of varices. Per detailer , although he should be on BB with Liver disease he does better here with CCB d/c cardizem drip and change cardizem CD 120mg daily with Cardizem 30 mg every 8 hours PRN dose in the heart rate more than 110 Continue dig 0.125 daily and xarelto Xarelto for a total of 4 weeks after his cardioversion, but does not recommend Xarelto for long-term anticoagulation for stroke prevention because the risk outweighs the benefit given his dementia and other issues. possible Acute diastolic CHF continue home dose of Bumex and watch i&O Bilateral lower exts edema is not new, had advice elevation when sitting up Minimal elevated troponin likely because of demanding ischemia patient has no chest pain will watch Significant dementia. Coronary artery disease, status post coronary bypass grafting x2 in 1997 Percutaneous coronary intervention of the circumflex in 2005. Severe aortic stenosis. Patient was not on oxygen before admission, will taper off oxygen if possible GI and DVT prophylaxis covered Discussed with patient and family Increase activity, up and walk, if heart rate fairly okay will be discharged in late afternoon or tomorrow morning PT report possible need of inpatient acute rehabilitation, has request PT OT to reevaluation of the need Continued [facility] stay due to: home environment unsafe for pt Discharge planning: home
[2016-12-18] MEDS: RIVAROXABAN 10 MG TAB PO SCH (17:23)
[2016-12-18] MEDS: DIGOXIN 0.125 MG TAB PO SCH (17:23)
[2016-12-18] MEDS: PRAVASTATIN SOD 20 MG TAB PO SCH (20:44)
[2016-12-19 04:20] VITALS: BP 136/75; PULSE 55; TEMP 36.7; O2SAT 93
[2016-12-19] MEDS: GABAPENTIN 100 MG CAP PO SCH (07:29)
[2016-12-19] MEDS: ASPIRIN 81 MG ECTAB PO SCH (07:30)
[2016-12-19] MEDS: BUMETANIDE 1 MG TAB PO SCH (07:30)
[2016-12-19] MEDS: DILTIAZEM HCL 120 MG CAPCR PO SCH (07:31)
--- NOTE | 2016-12-19 07:45 | Discharge Instructions ---
Discharge Instructions Date of Service Dec 19, 2016. Admission Reason for Admission: Atrial Fibrillation With Rapid Ventricular Respons Discharge Discharge Diagnosis / Problem: afib with rvr Discharge Goals Goal(s): Decrease discomfort, Improve function, Increase independence, Improve disease control, Improve nutritional status, Learn about illness, Prevent Disease Progression, Specific goals Activity Recommendations Activity Limitations: resume your previous activity . Instructions / Follow-Up Instructions / Follow-Up you have A. fib with RVR is getting better you need to continue to Cardizem CD 120mg daily with Cardizem 30 mg every 8 hours as needed dose in the heart rate more than 110 Continue dig 0.125 daily your Xarelto for a total of 4 weeks after his cardioversion on 12/10/2016, it does not recommend Xarelto for long-term anticoagulation - you need to follow up with your primary care physician in 1 week, - take medication as instructed, never overdose or any misuse, or take with alcohol, because misuse of medicine may cause organ damage or , call your primary care physician if have questions of medicaitons. - call your primary care physician OR go to local emergency room if has any fever/chill, chest pain, shortness of breathing, nausea/vomiting/abdominal pain , facial droop/slurry speech/local weakness, or if has any questions. - fall precaution - diet as instructed - you need to follow up with your subspecialist Dr. Hanks - you should understand that it is important to follow up the above instruction , and "not following the above instruction" may cause delayed or missed care of your medical conditions which may cause permanent organ damage and even . Current Hospital Diet Patient's current hospital diet: AHA Diet (Heart Healthy) Discharge Diet Recommended Diet: AHA Diet (Heart Healthy), Low Sodium Diet (2gm Na) Procedures Procedures Performed: no Pending Studies Studies pending at discharge: no Medical Emergencies . Who to Call and When: Medical Emergencies: If at any time you feel your situation is an emergency, please call 911 immediately. . Non-Emergent Contact Non-Emergency issues call your: Primary Care Provider, [facility] . . "Provider Documentation" section prepared by Tanner Estrada. . VTE Core Measure Inpt VTE Proph given/why not?: Other Anticoagulation
[2016-12-19 08:11] VITALS: BP 136/75; PULSE 55; TEMP 36.7; O2SAT 93
[2016-12-19] MEDS: MULTIVITAMIN TAB PO SCH (08:27)
[2016-12-19 08:30] VITALS: BP 110/76; PULSE 68; TEMP 36.8; O2SAT 93
--- NOTE | 2016-12-19 09:10 | Discharge Summary ---
Discharge Summary Date of Service Dec 19, 2016. 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 Medication Reconciliation New Medications: Digoxin (Digoxin) 0.125 Mg Tab 0.125 MG PO DAILY@16 for 30 Days, TAB Diltiazem HCl (Diltiazem HCl) 30 Mg Tab 30 MG PO TID PRN for TITRATION for 10 Days, #30 TAB Diltiazem HCl (Diltiazem Cd) 120 Mg Capcr 120 MG PO QAM for 30 Days Continued Medications: Aspirin (Aspirin 81) 81 Mg Tab 81 MG PO QAM Bumetanide (Bumetanide) 1 Mg Tab 2 MG PO Q2D, #72 Bumetanide (Bumex) 1 Mg Tab 3 MG PO Q2D, TAB Cholecalciferol (Vitamin D3) 1,000 Unit Tab 1 TAB PO DAILY for 90 Days, #90 TAB 3 Refills Gabapentin (Neurontin) 100 Mg Cap 200 MG PO BID, CAP Multivitamin (Multivitamin) Tab 1 TAB PO QAM, TAB Potassium Chloride (Potassium Chloride ER) 20 Meq Tab 20 MEQ PO DAILY, #30 Pravastatin (Pravachol ) 20 Mg Tab 20 MG PO HS, TAB Rivaroxaban (Xarelto) 10 Mg Tab 2 TAB PO DAILY for 30 Days, #60 TAB 6 Refills to be started after 15 mg bid load for 21 days may substitute 20 mg tablet if able Tramadol (Ultram) 50 Mg Tab 50 MG PO Q4H PRN for Pain, TAB Discontinued Medications: Metoprolol Succ (Toprol Xl) (Toprol-Xl) 25 Mg Tabcr 25 MG PO QAM, TAB Rivaroxaban (Xarelto) 15 Mg Tab 15 MG PO BID for 21 Days, #42 DOSE xarelto 15 mg bid for 21 days then 20 mg a day Discharge Exam Doing okay up and walk, heart rate well controlled Review of Systems: Constitutional: No fever, No chills, No sweats, No weight loss, No weakness , No fatigue, No problem reported ENT: No hearing loss, No unusual epistaxis, No nasal symptoms, No sore throat, No tinnitus, No dental problems, No trouble swallowing, No problem reported Respiratory: No cough, No sputum, No wheezing, No shortness of breath, No dyspnea on exertion, No dyspnea at rest, No hemoptysis, No problem reported Cardiovascular: + edema, No chest pain, No orthopnea, No PND, No claudication, No palpitations, No problem reported Abdomen: No pain, No nausea, No vomiting, No diarrhea, No constipation, No GI bleeding, No problem reported Musculoskeletal: No joint pain, No muscle pain, No swelling, No calf pain, No problem reported Genitourinary - Male: No hematuria, No dysuria, No urinary frequency, No urinary urgency, No urinary hesitancy, No urinary retention, No urinary incontinence, No penile discharge, No lesions, No impotence, No problem reported Neurologic: No memory loss, No paralysis, No weakness, No numbness/tingling , No vertigo, No balance problems, No problem reported Psychiatric: No depression symptoms, No anhedonism, No anxiety, No insomnia , No substance abuse, No problem reported Endocrine: No fatigue, No excessive thirst, No excessive urination, No problem reported Hematologic / Lymphatic: No abnormal bleeding/bruising, No clotting problems , No swollen lymph nodes, No night sweats, No problem reported Integumentary: No rash, No itch, No new/changing skin lesions, No color change, No bleeding, No problem reported Physical Exam: General Appearance: WD/WN, no apparent distress, + pertinent finding ( pleasant , mild confused) Eyes: normal inspection, PERRL ENT: normal ENT inspection, hearing grossly normal, TMs normal, pharynx normal Neck: supple, no adenopathy, thyroid normal Respiratory/Chest: chest non-tender, lungs clear, normal breath sounds, + decreased breath sounds Cardiovascular: + systolic murmur, + irregularly irregular, + pertinent finding (2+ edema) Abdomen / GI: normal bowel sounds, non tender, soft, no organomegaly, no pulsatile mass Extremities: normal inspection, no calf tenderness, normal capillary refill , + swelling Neurologic/Psychiatric: 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 Hanks's office for an elevated heart rate in the 130s. Pt was asymptomatic. Was discharged from [facility] one week ago after cardioversion. In the emergency room , he got 1L fluid bolus in the ER with and 75mg PO Lopressor which did not control heart rate. Pt was also given 0.25mg digoxin and then started on a diltiazem drip. A. fib with RVR is getting better, and now rte controlled Was planning to give beta travis and dig to control heart rate However it is not able to control heart rate, Per cardiology Because of his history of liver cirrhosis, and dementia and the issues of renal clearance with sotalol and Tikosyn, he is not a candidate for the other class III antiarrhythmics. 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 as he should be on beta blockers given his cirrhosis without evidence of varices. Per millinery department manager , although he should be on BB with Liver disease he does better here with CCB d/c cardizem drip and change cardizem CD 120mg daily with Cardizem 30 mg every 8 hours PRN dose in the heart rate more than 110 Continue dig 0.125 daily and xarelto Xarelto for a total of 4 weeks after his cardioversion, but does not recommend Xarelto for long-term anticoagulation for stroke prevention because the risk outweighs the benefit given his dementia and other issues. possible Acute diastolic CHF continue home dose of Bumex and watch i&O Bilateral lower exts edema is not new, had advice elevation when sitting up Minimal elevated troponin likely because of demanding ischemia patient has no chest pain will watch Significant dementia. Coronary artery disease, status post coronary bypass grafting x2 in 1997 Percutaneous coronary intervention of the circumflex in 2005. Severe aortic stenosis. Patient was not on oxygen before admission, has been able to taper off GI and DVT prophylaxis covered Discussed with patient and family Increase activity, up and walk, PT report possible need of inpatient acute rehabilitation, encourage patient to talk to pcp if he feel need so, patient agreed Instructions / Follow-Up you have A. fib with RVR is getting better you need to continue to Cardizem CD 120mg daily with Cardizem 30 mg every 8 hours as needed dose in the heart rate more than 110 Continue dig 0.125 daily your Xarelto for a total of 4 weeks after his cardioversion on 12/10/2016, it does not recommend Xarelto for long-term anticoagulation - you need to follow up with your primary care physician in 1 week, - take medication as instructed, never overdose or any misuse, or take with alcohol, because misuse of medicine may cause organ damage or , call your primary care physician if have questions of medicaitons. - call your primary care physician OR go to local emergency room if has any fever/chill, chest pain, shortness of breathing, nausea/vomiting/abdominal pain , facial droop/slurry speech/local weakness, or if has any questions. - fall precaution - diet as instructed - you need to follow up with your subspecialist Dr. Hanks - you should understand that it is important to follow up the above instruction , and "not following the above instruction" may cause delayed or missed care of your medical conditions which may cause permanent organ damage and even . Total Time Spent: Less than 30 minutes This includes examination of the patient, discharge planning, medication reconciliation, and communication with other providers. Discharge Instructions Please refer to the electronic Patient Visit Report (Discharge Instructions) for additional information. Additional Copies To Walker Hanks, DO; Ishaan Perry M.D.
== END 2016-12-19 12:12 | disposition home health service (06) | DRG 308 ==
LOC: EDBD 14:59 → C.EDA 15:00 → C.2T 19:07 → ENRESERV 19:24 → OBSVTOIN 12-15 09:23
PROVIDERS: ADMIT Internal Medicine; ATTEND Hospitalist
DX: I48.0 Paroxysmal atrial fibrillation (principal); I50.31 Acute diastolic (congestive) heart failure; I24.8 Other forms of acute ischemic heart disease; I11.0 Hypertensive heart disease with heart failure; Z79.82 Long term (current) use of aspirin; Z88.0 Allergy status to penicillin; I25.10 Atherosclerotic heart disease of native coronary artery without angina pectoris; I35.0 Nonrheumatic aortic (valve) stenosis; Z95.5 Presence of coronary angioplasty implant and graft; K74.60 Unspecified cirrhosis of liver; I48.92 Unspecified atrial flutter; K76.0 Fatty (change of) liver, not elsewhere classified; E78.5 Hyperlipidemia, unspecified; F03.90 Unspecified dementia, unspecified severity, without behavioral disturbance, psychotic disturbance, mood disturbance, and anxiety

== ENCOUNTER → 2017-01-25 | Outpatient (CLI) | payer BC ==
[~2017-01-25] MED LIST changes: +CRD30 PO; +CRDCD120 PO; -LISI-729 PO; +LNX125 PO; -METO25TA3 PO; -XRL15 PO
[2017-01-25 12:56] LABS: BLOOD UREA NITROGEN 14 mg/dl (7-18); BUN/CREATININE RATIO 14.9 (10-20); CALCIUM 9.7 mg/dl (8.5-10.1); CARBON DIOXIDE 31 mmol/L (21-32); CHLORIDE 103 mmol/L (98-107); CREATININE 0.96 mg/dl (0.60-1.40); GLUCOSE 158 mg/dl (70-99); POTASSIUM 3.4 mmol/L (3.5-5.1); SODIUM 141 mmol/L (136-145)
== END | disposition home or self-care (01) ==
LOC: C.LABBFT 08:31
PROVIDERS: ATTEND Family Medicine
DX: I48.91 Unspecified atrial fibrillation (principal)

== ENCOUNTER → 2017-02-01 | Outpatient (CLI) | payer BC | END | disposition home or self-care (01) | LOC: C.LABBFT 08:19 | PROVIDERS: ATTEND Family Medicine | DX: E87.6 Hypokalemia (principal) ==